=== PATIENT | female | born 1945 | race Caucasian/White ===

== ENCOUNTER 2019-09-24 13:13 | Inpatient (IN) ==
--- NOTE | 2019-09-24 14:18 | Internal Med History&Physical ---
Medical - H&P: [facility] Patient information: Note initiated : 09/24/19 at 2:10 pm Service Date, if different from initiated Date: [] Patient: Leonila Martinez a 74 y/o F admitted on for Pneumonia. Chief Complaint: [] History of present illness: Ms. Martinez is a 74 year old F Patient was sent into the ED from the dialysis unit after her expressing concerns with increased cough and left back side rib pain and shortness of breath. Patient did not not get dialysis. Patient reports has had 3 days worth of cough productive of white sputum. She has had some short associated mild shortness of breath. She has pleuritic left lateral and posterior chest pain. Made worse by coughing and deep breathing. Denies any other chest pain. In the ED she is found to have a leukocytosis and a chest x-ray which showed left lower lobe infiltrate. Case discussed with Dr. Phelps who would like the patient to be admitted, patient was sent over to [facility] for dialysis. She states she did feel feverish at home. She is on room air on arrival. BC's obtained in [facility] ED as well as Zosyn given. Review of Systems: Pertinent positives as above. Denies headache/fever/chills/nausea/vomiting/chest or abdominal pain/diarrhea. Remaining 10 point review of system reviewed negative Medical - H&P: PMH Medical history: Past medical history: Tobacco abuse End-stage renal disease Macrocytic anemia Adrenal insufficiency Crohn's Past surgical history: Total abdominal hysterectomy with bilateral salpingo-oophorectomy Partial colectomy Cholecystectomy AV fistula Ileostomy Appendectomy Family: Mother is healthy Father COPD Social history: Patient smokes half pack cigarettes per day Denies alcohol use Does not use a cane or walker Lives at home with her grandson Medical - H&P: Exam - Constitutional Exam: General: Alert, Awake, No acute Distress Eyes/N/T: EOMI, PERRL, Head/Neck: neck supple, normocephalic atraumatic CV: RRR, 3/6SM Pulm: Clear b/l, no wheezing/rhonchi/rales Abd: soft, nontender, +BS x4 Ext: no clubbing/cyanosis/edema Neuro: Alert, no focal deficits, moves all extremities, CN 2-12 grossly intact, symmetrical strength b/l upper/lower, sensations intact b/l upper/lower Skin: warm/dry Medical - H&P: A/P - Narrative A/P Narrative: A: *CAP (LLL): *ESRD: *Met acidosis: 2/2 ESRD *Hyponatremia/chloremia and hypercalemia: 2/2 ESRD *adrenal insufficiency: on fludrocortisone *Crohn's *Chr abd pain: * P: -Rocephin/Azithro -pending BC/SC -IS, prn O2 -Dr. Phelps for HD and fluid balance, electrolyte imbalance - -pt/ot -ppx: heparin full code
[2019-09-24] MEDS ORDERED: MAGNESIUM SULFATE 2 GM/50 ML BAG IV PRN (14:50)
[2019-09-24] MEDS ORDERED: SENNOSIDES 1 TABLET PO PRN (14:50)
[2019-09-24] MEDS ORDERED: POTASSIUM CHLORIDE 20 MEQ TABLET PO PRN ×2 (14:50)
[2019-09-24] MEDS ORDERED: POLYETHYLENE GLYCOL 3350 17 GM PACKET PO PRN (14:50)
[2019-09-24] MEDS ORDERED: POTASSIUM CHLORIDE 40 MEQ in DEXTROSE 5% IN WATER 500 ML IV PRN (14:50)
[2019-09-24] MEDS ORDERED: IPRATROPIUM/ALBUTEROL 3 ML AMPUL.NEB NEB PRN (14:50)
[2019-09-24 16:11] LABS: Band Neutrophils % 3 % (0-10); Lymphocytes % 8 % (15-49); Monocytes % (Manual) 4 % (1-12); Platelet Estimate INCREASED (NORMAL); RBC Morphology NORMAL (NORMAL); Segmented Neutrophils % 85 % (38-78)
[2019-09-24] MEDS: cefTRIAXone 2 GM in DEXTROSE 5% IN WATER 50 ML IV SCH (16:50)
[2019-09-24] MEDS: AZITHROMYCIN 500 MG in DEXTROSE 5% IN WATER 250 ML IV SCH (17:00)
[2019-09-24] MEDS: HYDROcodone/APAP 5/325MG TABLET PO PRN (20:14)
[2019-09-24] MEDS: DOCUSATE SODIUM 100 MG CAPSULE PO SCH (22:41)
[2019-09-24] MEDS: ONDANSETRON 4 MG/2 ML VIAL IV PRN (22:41)
[2019-09-24] MEDS: 0.9 % SODIUM CHLORIDE 10 ML SYRINGE IV SCH (22:41)
[2019-09-24] MEDS: MUPIROCIN OINT 2% 22GM NARES SCH (22:41)
[2019-09-24] MEDS: HEPARIN 5,000 UNIT/ML VIAL SQ SCH (22:50)
[2019-09-25] MEDS: HYDROcodone/APAP 5/325MG TABLET PO PRN ×4 (03:57→14:38)
[2019-09-25] MEDS: 0.9 % SODIUM CHLORIDE 10 ML SYRINGE IV SCH ×3 (05:57→20:25)
[2019-09-25 07:22] LABS: Basophils # (Auto) 0.06 K/mcL (0.00-0.30); Basophils % (Auto) 0.2 % (0.0-2.0); Eosinophils # (Auto) 0.02 K/mcL (0.00-0.70); Eosinophils % (Auto) 0.1 % (0.0-7.0); Granulocytes % (Auto) 92.4 % (38.0-78.0); Lymphocytes # (Auto) 1.49 K/mcL (1.50-4.80); Lymphocytes % (Auto) 4.8 % (15.5-49.0); Mean Cell Volume 101.6 fL (80.0-100.0); Mean Corpuscular HGB Conc 34.6 g/dL (31.0-36.0); Mean Platelet Volume 9.4 fL (7.4-10.4); Monocytes # (Auto) 0.76 K/mcL (0.10-0.90); Monocytes % (Auto) 2.5 % (1.0-12.0); Platelet Count 547 K/mcL (140-440); RBC 2.56 M/mcL (3.59-5.38); Red Cell Distribution Width 16.1 % (11.5-14.5); WBC 30.9 K/mcL (4.50-11.00)
[2019-09-25] MEDS ORDERED: LOPERAMIDE 2 MG CAPSULE PO PRN (07:26)
--- NOTE | 2019-09-25 07:27 | Internal Med Progress Note ---
Medical - PN: Subj Patient information: Note initiated : 09/25/19 at 7:23 am Service Date, if different from initiated Date: [] Patient: Leonila Martinez a 74 y/o F admitted on 09/24/19 for Pneumonia. Chief Complaint: [] Interval history: Ms. Martinez is a 74 year old F Patient was sent into the ED from the dialysis unit after her expressing concerns with increased cough and left back side rib pain and shortness of breath. Patient did not not get dialysis. Patient reports has had 3 days worth of cough productive of white sputum. She has had some short associated mild shortness of breath. She has pleuritic left lateral and posterior chest pain. Made worse by coughing and deep breathing. Denies any other chest pain. In the ED she is found to have a leukocytosis and a chest x-ray which showed left lower lobe infiltrate. Case discussed with Dr. Phelps who would like the patient to be admitted, patient was sent over to [facility] for dialysis. She states she did feel feverish at home. She is on room air on arrival. BC's obtained in [facility] ED as well as Zosyn given. 2/6 Blood pressure low during dialysis last evening. Blood pressure good today. Patient feeling better overall. No new complaints. Shortness of breath is improving. Her cough is improving. She still has that left pleuritic chest pain but it is improving. Review of Systems: denies headache/fever/chills/nausea/vomiting/abdominal pain/diarrhea. Otherwise see above. - Constitutional Vitals: Vital Signs Temp Pulse Resp BP Pulse Ox 97.8 F 92 H 22 119/87 95 09/25/19 00:00 09/25/19 04:27 09/25/19 04:27 09/25/19 04:01 09/25/19 04:27 Period Temp Pulse Resp BP Sys/Zuniga Pulse Ox Last 24 Hr 97.3 F-98.0 F 68-104 17-29 55-149/39-122 90-100 Intake and Output 09/24/19 09/25/19 09/25/19 21:59 05:59 13:59 Intake Total 100 300 Output Total 200 Balance 100 100 Weight 75.568 kg Intake & Output: Intake & Output 09/24/19 09/25/19 09/25/19 21:59 05:59 13:59 Intake Total 100 300 Output Total 200 Balance 100 100 Weight 75.568 kg Intake: Oral 100 300 Output: Stool 200 Hemodialysis UF 0 Exam: General: Alert, Awake, No acute Distress Eyes/N/T: EOMI, Head/Neck: neck supple, CV: RRR, 3/6SM Pulm: Clear b/l, no wheezing/rhonchi/rales Abd: soft, nontender, +BS x4 Ext: no clubbing/cyanosis/edema Neuro: Alert, no focal deficits, moves all extremities, Skin: warm/dry Medical - PN: Obj Da - Labs CBC & Chem 7: 09/25/19 05:20 09/25/19 05:20 Labs: Abnormal Lab Results 09/25/19 09/24/19 05:20 12:10 WBC 30.9 H* RBC 2.56 L Hgb 9.0 L Hct 26.0 L MCV 101.6 H MCH 35.2 H RDW 16.1 H Plt Count 547 H Gran % 92.4 H Lymph % (Auto) 4.8 L Gran # 28.58 H Lymph # (Auto) 1.49 L Seg Neutrophils % 85 H Lymphocytes % 8 L WBC Morphology Abnorm A Hypersegmented Polys 1+ A Meds: Medications Hydrocodone Bitart/Acetaminophen ([place] 5/325mg) 1 tab PO Q4HP PRN PRN Reason: PAIN LEVEL 3-6 Last Admin: 09/25/19 03:57 Dose: 1 tab Documented by: Albuterol/Ipratropium (Duoneb) 3 ml NEB Q4HP PRN PRN Reason: Shortness Of Breath Docusate Sodium (Colace) 100 mg PO BID [facility] Last Admin: 09/24/19 22:41 Dose: Not Given Documented by: Heparin Sodium (Porcine) (Heparin) 5,000 unit SQ Q12 [facility] Last Admin: 09/24/19 22:50 Dose: 5,000 unit Documented by: Potassium Chloride 40 meq/ (Dextrose) 520 mls @ 130 mls/hr IV UD PRN PRN Reason: Potassium < 3 Magnesium Sulfate (Magnesium Sulfate) 2 gm in 50 mls @ 50 mls/hr IV UD PRN PRN Reason: Magnesium </= 1.6 Ceftriaxone Sodium 2 gm/ (Dextrose) 50 mls @ 100 mls/hr IV DAILY [facility]; Protocol Last Admin: 09/24/19 16:50 Dose: 100 mls/hr Documented by: Azithromycin 500 mg/ Dextrose 250 mls @ 250 mls/hr IV DAILY@1000 [facility]; Protocol Stop: 09/26/19 10:59 Last Admin: 09/24/19 17:00 Dose: 120 mls/hr Documented by: Mupirocin (Bactroban Oint 2%) 1 dose NARES BID [facility] Last Admin: 09/24/19 22:41 Dose: 1 dose Documented by: Ondansetron HCl (Zofran) 4 mg IV Q4HP PRN PRN Reason: Nausea And Vomiting Last Admin: 09/24/19 22:41 Dose: 4 mg Documented by: Polyethylene Glycol (Miralax) 17 gm PO DAILYP PRN PRN Reason: Constipation Potassium Chloride (Kdur) 40 meq PO UD PRN PRN Reason: Potssium is 3-3.5 Potassium Chloride (Kdur) 40 meq PO UD PRN PRN Reason: Potassium < 3 Senna (Senokot) 2 tab PO DAILYP PRN PRN Reason: Constipation Sodium Chloride (Saline Flush) 10 ml IV Q8 [facility] Last Admin: 09/25/19 05:57 Dose: 10 ml Documented by: Medical - PN: A/P - Time Spent With Patient Total time spent is greater than 50% in coordination of care (as documented) at patient's floor/unit and/or counseling patient: - Narrative A/P Narrative: A: *CAP (LLL): -wbc 30<35, afebrile -on room air *ESRD: *Anemia, chronic: *Met acidosis: 2/2 ESRD *Hyponatremia/chloremia and hypercalemia: 2/2 ESRD. improved *in the past was on fludrocortisone *Crohn's: *Chr abd pain: * P: -Rocephin/Azithro -pending BC/SC -IS, prn O2 -Dr. Phelps for HD and fluid balance, electrolyte imbalance - -pt/ot -ppx: heparin full code Medical - PN: Qual - VTE Deep Vein Thrombosis/Pulmonary Embolism Present on Admission: No
[2019-09-25] MEDS: traMADol 50 MG TABLET PO SCH ×2 (07:49→20:25)
[2019-09-25 08:02] LABS: Bilirubin,Direct < 0.2 mg/dL (0.0-0.3)
[2019-09-25 08:04] LABS: ALT/SGPT 20 U/l (0-40); AST/SGOT 17 U/l (0-37); Albumin 2.6 gm/dL (3.2-5.2); Albumin/Globulin Ratio 0.7 (1.0-2.3); Alkaline Phosphatase 179 U/L (39-117); Bilirubin,Total 0.2 mg/dL (0.0-1.0); Blood Urea Nitrogen 17 mg/dl (8-23); Calcium 9.4 mg/dl (8.6-10.4); Carbon Dioxide 26 mmol/L (22-30); Chloride 88 mmol/L (96-108); Globulin 3.8 gm/dL (2.2-3.7); Glomerular Filtration Rate 14; Glucose 78 mg/dL (70-105); Lactate Dehydrogenase 197 U/L (94-250); Phosphorous 3.8 mg/dL (2.7-4.5); Triglycerides 147 mg/dl (<150); Uric Acid 2.8 mg/dL (2.5-8.0)
[2019-09-25] MEDS: ONDANSETRON 4 MG/2 ML VIAL IV PRN ×2 (08:36→14:38)
[2019-09-25] MEDS: cefTRIAXone 2 GM in DEXTROSE 5% IN WATER 50 ML IV SCH (08:43)
[2019-09-25] MEDS: AZITHROMYCIN 500 MG in DEXTROSE 5% IN WATER 250 ML IV SCH (08:43)
[2019-09-25] MEDS: CALCIUM ACETATE 667 MG CAPSULE PO SCH ×3 (08:45→17:02)
[2019-09-25] MEDS: MUPIROCIN OINT 2% 22GM NARES SCH ×2 (08:45→20:25)
[2019-09-25] MEDS: HEPARIN 5,000 UNIT/ML VIAL SQ SCH ×2 (08:45→20:25)
[2019-09-25] MEDS: DOCUSATE SODIUM 100 MG CAPSULE PO SCH ×2 (08:45→20:25)
[2019-09-25 09:09] LABS: Band Neutrophils % 14 % (0-10); Lymphocytes % 7 % (15-49); Metamyelocytes % 3 % (0-0); Monocytes % (Manual) 3 % (1-12); Platelet Estimate INCREASED (NORMAL); Polychromasia FEW (NONE SEEN); RBC Morphology ABNORM (NORMAL); Reactive Lymphocytes 1 % (0-2); Segmented Neutrophils % 72 % (38-78)
--- NOTE | 2019-09-25 09:19 | Nephrology Progress Note ---
Subjective Patient information: Note initiated : 09/25/19 at 9:15 am Service Date, if different from initiated Date: [] Patient: Leonila Martinez 74 y/o F admitted on 09/24/19 for Pneumonia. Chief Complaint: [] Feels better. She has not been coughing. No fever. Objective - Vital Signs Vital signs: Vital Signs Temp Pulse Pulse Resp BP BP Pulse Ox 09/25/19 08:01 98 F 16 129/57 92 09/25/19 07:01 22 135/58 96 09/25/19 06:01 22 132/54 94 09/25/19 05:01 20 116/50 95 09/25/19 04:27 92 H 22 95 09/25/19 04:01 93 H 22 119/87 96 09/25/19 03:01 94 H 24 H 114/47 93 09/25/19 02:01 94 H 29 H 102/78 95 09/25/19 02:00 95 09/25/19 01:01 95 H 25 H 125/49 96 09/25/19 00:01 96 H 25 H 126/46 99 09/25/19 00:00 97.8 F 95 H 22 98 09/24/19 23:02 96 H 21 103/44 100 09/24/19 22:18 95 H 20 89/43 95 09/24/19 22:16 94 H 21 75/46 91 09/24/19 22:13 91 H 23 H 80/44 90 09/24/19 22:09 98.0 F 91 H 80/44 09/24/19 22:01 97 H 20 92/45 93 09/24/19 21:46 25 H 88/44 09/24/19 21:31 88 26 H 80/42 91 09/24/19 21:27 104 H 88/44 09/24/19 21:16 18 88/44 09/24/19 21:11 90 84/39 09/24/19 21:06 22 84/39 09/24/19 21:02 88 18 96 09/24/19 21:01 23 H 55/40 09/24/19 20:46 88 23 H 80/48 09/24/19 20:32 95 H 22 80/43 91 09/24/19 20:19 95 H 96/45 09/24/19 20:16 86 20 96/45 92 02/05/20 20:02 68 74/49 09/24/19 20:01 23 H 74/49 09/24/19 20:00 95 09/24/19 19:50 28 H 70/44 09/24/19 19:48 82 25 H 79/39 09/24/19 19:47 21 81/42 09/24/19 19:31 18 117/91 09/24/19 19:30 80 117/91 09/24/19 19:16 23 H 106/51 09/24/19 19:15 77 106/51 09/24/19 19:01 73 23 H 106/55 09/24/19 18:47 26 H 122/61 09/24/19 18:45 97.9 F 76 122/61 09/24/19 18:43 19 127/59 09/24/19 18:01 23 H 149/122 09/24/19 17:01 77 20 122/58 96 09/24/19 16:04 73 23 H 96 09/24/19 16:01 75 21 105/49 95 09/24/19 15:01 85 19 126/73 98 09/24/19 14:50 97.3 F 78 25 H 129/59 94 09/24/19 14:31 19 119/57 09/24/19 14:27 97.3 F 25 H 129/59 09/24/19 14:26 17 09/24/19 14:15 97.3 F 78 25 H 129/59 94 Intake and Output 09/24/19 09/25/19 09/25/19 21:59 05:59 13:59 Intake Total 400 300 Output Total 200 200 Balance 400 100 -200 Intake: IV 300 Zithromax 500 mg In Dextrose 5% 250 in Water 250 ml @ 250 mls/hr IV DAILY@1000 [facility] Rx#:[id number] Rocephin 2 gm In Dextrose 5% in 50 Water 50 ml @ 100 mls/hr IV DAILY [facility] Rx#:[id number] Oral 100 300 Output: Stool 200 200 Hemodialysis UF 0 Other: Stool Color Brown Stool Consistency Liquid Weight 166 lb 9.6 oz Intake & Output: Intake & Output 09/24/19 09/25/19 09/25/19 21:59 05:59 13:59 Intake Total 400 300 Output Total 200 200 Balance 400 100 -200 Weight 166 lb 9.6 oz Intake: IV 300 Zithromax 500 mg In Dextrose 5% 250 in Water 250 ml @ 250 mls/hr IV DAILY@1000 [facility] Rx#:[id number] Rocephin 2 gm In Dextrose 5% in 50 Water 50 ml @ 100 mls/hr IV DAILY [facility] Rx#:[id number] Oral 100 300 Output: Stool 200 200 Hemodialysis UF 0 Other: Stool Color Brown Stool Consistency Liquid - General Appearance General appearance: appears started age EENT: ATNC Neck: no JVD Respiratory: no kyphosis Cardiology: no murmurs Gastrointestinal: normoactive bowel sounds Integumentary: no rash Neurologic: no focal deficit - Lab 09/25/19 05:20 09/25/19 05:20 Most recent lab results Calcium 9.4 mg/dl (8.6-10.4) 09/25/19 05:20 Phosphorus 3.8 mg/dL (2.7-4.5) 09/25/19 05:20 Magnesium 1.9 mg/dL (1.6-2.5) 09/25/19 05:20 Assessment and Plan (1) ESRD (end stage renal disease) on dialysis Status: Acute Comment: ESRD. Had dialysis yesterday. Volume is typically not an issue and she is usually volume depleted. Electrolytes look ok. Pneumonia. Agree with CT with contrast.
[2019-09-25] MEDS ORDERED: VANCOMYCIN PER PHARMACY IV SCH (09:33)
[2019-09-25] MEDS: VITAMIN D3 5,000 UNIT CAPSULE PO SCH (09:44)
--- NOTE | 2019-09-25 09:44 | XRay Report ---
CLINICAL INFORMATION: f/u left infiltrate COMPARISON: Lung base images from abdomen CT 11/11/2013 FINDINGS: Heart size, mediastinum and pulmonary vessels are normal. Moderate airspace disease posterior medial left lower lobe with small left pleural effusion appreciated. There was also an infiltrate on the remote 2013 study. The remaining lungs are clear. Mild chronic appearing compression fracture thoracic spine noted. IMPRESSION: Moderate left lower lobe infiltrate and small effusion. Suspect acute pneumonia. There was, however, airspace disease in this region on the remote CT and thus it may still merely represent fibrosis Interpreted and Authenticated by: Ramón Nicole 09/25/19
--- NOTE | 2019-09-25 09:53 | Consultation ---
DATE OF CONSULTATION: 09/24/2019 REASON FOR HOSPITALIZATION: The patient is a 74-year-old female with past medical history significant for end-stage renal disease on hemodialysis. She dialyzes Mondays, Wednesdays, Fridays. She came into the dialysis unit and was complaining of shortness of breath and back pain. For that reason, she was sent over to the emergency room where she was found to have left lower lobe pneumonia and profound leukocytosis. She has been coughing, productive for about 3 days. She also had some pleuritic type of chest pain on and off on the left side as well. Coughing and breathing made it worse. She also felt feverish at home. PAST MEDICAL HISTORY: Significant for: 1. End-stage renal disease on hemodialysis Mondays, Wednesdays, Fridays. 2. Macrocytic anemia. 3. Renal insufficiency for which she was on her fludrocortisone in the past. 4. Crohn's disease. These have been her main problems. She had significant intestinal loss in the sense that she has lost a fair amount of small bowel and she has a high ileostomy with a large output. PAST SURGICAL HISTORY: 1. History of total abdominal hysterectomy with bilateral salpingo-oophorectomy. 1. Partial colectomy. 2. Cholecystectomy. 3. AV fistula placement. 4. Ileostomy and appendectomy. FAMILY HISTORY: Apparently there is history of COPD. SOCIAL HISTORY: She smokes about half pack per day. Denies any alcohol or drug use. REVIEW OF SYSTEMS: Ten systems were reviewed and as indicated in the HPI. PHYSICAL EXAMINATION: GENERAL: Alert, oriented x3. She is in mild respiratory distress. VITAL SIGNS: Blood pressures have been ranging from 90 to 110 systolic with a diastolic in the 40s, pulse rates have been in the 90s. Temperature 98.0. Pulse oximetry 94% on room air. HEENT: NC/AT. Pupils are reactive to light. External auditory canal appears normal. Oral cavity appears dry. NECK: Supple. No jugular venous distention. No lymphadenopathy. No thyromegaly. No carotid bruits. LUNGS: Decreased air entry bilaterally. Rales heard in the left base along with rhonchi. CARDIAC: S1, S2 heard. No S3, S4. She has a ____ diastolic murmur. ABDOMEN: Soft, nontender. No edema. Positive bowel sounds. No mass, no rebound. EXTREMITIES: Did not show evidence of edema. Difficult to palpate dorsalis pedis and posterior tibials. NEUROLOGIC: Grossly intact. LABORATORY DATA: Lab data from [facility] still pending. ASSESSMENT AND PLAN: 1. End-stage renal disease. She is on dialysis. She is due for her regular dialysis treatment today. She will have 3-1/2 hours without any fluid removal. 2. Pneumonia. Management per hospitalist. 3. Anemia. Hemoglobin has been stable, but we will recheck it. 4. Hyperphosphatemia. We will check phosphorus levels. She is not very compliant with her binders. Thank you, Dr. Cazares for referring this patient for consultation. I will follow with you. SAL:michael Job ID: [id number] Doc ID: [id number] Bhavesh Cazares DO
[2019-09-25] MEDS ORDERED: VANCOMYCIN 1,000 MG in 0.9 % SODIUM CHLORIDE 250 ML IV ONE (10:00)
--- NOTE | 2019-09-25 10:54 | Discharge Summary ---
Medical - DS: Prov Patient information: Note initiated : 09/25/19 at 10:51 am Service Date, if different from initiated Date: [] Patient: Leonila Martinez 74 y/o F admitted on 09/24/19 for Pneumonia. Chief Complaint: [] Date of admission: 09/24/19 14:15 Discharge date: 09/26/19 Consults: 09/24/19 14:53 Consult to Physician [CONS] Routine Comment: Consulting Provider: Bhavesh Phelps Reason For Exam: Physician to Consult Medical - DS: Meds - Discharge Medications Prescriptions: Amoxicillin/Potassium Clav [Augmentin] 500 mg PO DAILY #5 tablet Doxycycline Monohydrate 100 mg PO BID #10 tablet Active and Home Medications: Home Medications Calcium Acetate [Calphron] 667 mg PO 09/25/19 [History Last Taken Unknown] Calcium Acetate [Phoslo] 3 tab PO TID 09/25/19 [History Confirmed 09/25/19 Last Taken Unknown] Cyanocobalamin [Vitamin B12] 1,000 mcg IM MONTHLY 09/25/19 [History Confirmed 09/25/19 Last Taken Unknown] Loperamide HCl [Loperamide] 2 mg PO Q8 PRN 09/25/19 [History Confirmed 09/25/19 Last Taken Unknown] Vitamin D3 5,000 unit PO DAILY 09/25/19 [History Confirmed 09/25/19 Last Taken Unknown] traMADol HCL [Ultram] 50 mg PO BID 09/25/19 [History Confirmed 09/25/19 Last Taken Unknown] Home Medications Calcium Acetate [Phoslo] 3 tab PO TID 09/25/19 [History Confirmed 09/25/19 Last Taken Unknown] Loperamide HCl [Loperamide] 2 mg PO Q8 PRN 09/25/19 [History Confirmed 09/25/19 Last Taken Unknown] Vitamin D3 5,000 unit PO DAILY 09/25/19 [History Confirmed 09/25/19 Last Taken Unknown] traMADol HCL [Ultram] 50 mg PO BID 09/25/19 [History Confirmed 09/25/19 Last Taken Unknown] Amoxicillin/Potassium Clav [Augmentin] 500 mg PO DAILY #5 tablet 09/26/19 [Rx Last Taken Unknown] Doxycycline Monohydrate 100 mg PO BID #10 tablet 09/26/19 [Rx Last Taken Unknown] Medical - DS: Hosp Hospital Course: Ms. Martinez is a 74 year old F Patient was sent into the ED from the dialysis unit after her expressing concerns with increased cough and left back side rib pain and shortness of breath. Patient did not not get dialysis. Patient reports has had 3 days worth of cough productive of white sputum. She has had some short associated mild shortness of breath. She has pleuritic left lateral and posterior chest pain. Made worse by coughing and deep breathing. Denies any other chest pain. In the ED she is found to have a leukocytosis and a chest x-ray which showed left lower lobe infiltrate. Case discussed with Dr. Phelps who would like the patient to be admitted, patient was sent over to [facility] for dialysis. She states she did feel feverish at home. She is on room air on arrival. BC's obtained in [facility] ED as well as Zosyn given. / Blood pressure low during dialysis last evening. Blood pressure good today. Patient feeling better overall. No new complaints. Shortness of breath is improving. Her cough is improving. She still has that left pleuritic chest p ain but it is improving. 09/26 No overnight events. White blood cell count improving. Bandemia resolved. Blood cultures negative. A: *CAP (LLL): *ESRD: *Anemia, chronic: *Met acidosis: 2/2 ESRD *Hyponatremia/chloremia and hypercalemia: 2/2 ESRD. improved *in the past was on fludrocortisone *Crohn's: *Chr abd pain: * Discharge diagnosis: Pneumonia Secondary discharge diagnosis: End-stage renal disease chronic anemia metabolic acidosis electrolyte imbalance Crohn's chronic abdominal pain - Time Spent with Patient Total time spent providing and/or coordinating discharge services: Greater than 30 minutes Medical - DS: Exam - Constitutional Vitals: Vital Signs Temp Pulse Pulse Resp BP BP Pulse Ox 09/25/19 08:01 98 F 16 129/57 92 09/25/19 07:01 22 135/58 96 09/25/19 06:01 22 132/54 94 09/25/19 05:01 20 116/50 95 09/25/19 04:27 92 H 22 95 09/25/19 04:01 93 H 22 119/87 96 09/25/19 03:01 94 H 24 H 114/47 93 09/25/19 02:01 94 H 29 H 102/78 95 02/06/20 02:00 95 09/25/19 01:01 95 H 25 H 125/49 96 20 00:01 96 H 25 H 126/46 99 09/25/19 00:00 97.8 F 95 H 22 98 0520 23:02 96 H 21 103/44 100 09/24/19 22:18 95 H 20 89/43 95 05/20 22:16 94 H 21 75/46 91 0520 22:13 91 H 23 H 80/44 90 0520 22:09 98.0 F 91 H 80/44 05 22:01 97 H 20 92/45 93 05 21:46 25 H 88/44 0520 21:31 88 26 H 80/42 91 0520 21:27 104 H 88/44 09/24/19 21:16 18 88/44 0520 21:11 90 84/39 09/24/19 21:06 22 84/39 09/24/19 21:02 88 18 96 09/24/19 21:01 23 H 55/40 0520 20:46 88 23 H 80/48 0520 20:32 95 H 22 80/43 91 0520 20:19 95 H 96/45 20 20:16 86 20 96/45 92 0520 20:02 68 74/49 0520 20:01 23 H 74/49 0520 20:00 95 0520 19:50 28 H 70/44 0520 19:48 82 25 H 79/39 05/20 19:47 21 81/42 0520 19:31 18 117/91 0205/20 19:30 80 117/91 0205/20 19:16 23 H 106/51 /05/20 19:15 77 106/51 0205/20 19:01 73 23 H 106/55 05/20 18:47 26 H 122/61 02/05/20 18:45 97.9 F 76 122/61 02/05/20 18:43 19 127/59 0205/20 18:01 23 H 149/122 02/05/20 17:01 77 20 122/58 96 09/24/19 16:04 73 23 H 96 09/24/19 16:01 75 21 105/49 95 09/24/19 15:01 85 19 126/73 98 09/24/19 14:50 97.3 F 78 25 H 129/59 94 09/24/19 14:31 19 119/57 09/24/19 14:27 97.3 F 25 H 129/59 09/24/19 14:26 17 09/24/19 14:15 97.3 F 78 25 H 129/59 94 Intake and Output 09/24/19 09/25/19 09/25/19 21:59 05:59 13:59 Intake Total 400 300 50 Output Total 200 200 Balance 400 100 -150 Intake: IV 300 50 Zithromax 500 mg In Dextrose 5% 250 in Water 250 ml @ 250 mls/hr IV DAILY@1000 DENAE Rx#:[id number] Rocephin 2 gm In Dextrose 5% in 50 50 Water 50 ml @ 100 mls/hr IV DAILY DENAE Rx#:[id number] Oral 100 300 Output: Stool 200 200 Hemodialysis UF 0 Other: Stool Color Brown Stool Consistency Liquid Weight 75.568 kg Medical - DS: Data Labs on day of discharge: Labs from last 24 hours 09/25/19 09/25/19 09/25/19 05:20 05:20 05:20 WBC RBC Hgb Hct MCV MCH MCHC RDW Plt Count MPV Gran % Lymph % (Auto) [place] % (Auto) Eos % (Auto) Baso % (Auto) Gran # Lymph # (Auto) [place] # (Auto) Eos # (Auto) Baso # (Auto) Total Counted 100 Seg Neutrophils % 72 Band Neutrophils % 14 H Lymphocytes % 7 L Monocytes % (Manual) 3 Metamyelocytes % 3 H Differential Comment WBC Morphology Hypersegmented Polys Reactive Lymphocytes 1 Platelet Estimate Increased RBC Morphology Abnorm A Polychromasia Few A Sodium 132 L Potassium 4.0 Chloride 88 L Carbon Dioxide 26 Anion Gap 18.0 H BUN 17 Creatinine 3.2 H GFR Calculation 14 Glucose 78 Uric Acid 2.8 Calcium 9.4 Phosphorus 3.8 Magnesium 1.9 Total Bilirubin 0.2 Direct Bilirubin < 0.2 GGT 46 H AST 17 ALT 20 Alkaline Phosphatase 179 H Lactate Dehydrogenase 197 Total Protein 6.4 Albumin 2.6 L Globulin 3.8 H Albumin/Globulin Ratio 0.7 L Triglycerides 147 Procalcitonin > 200.00 09/25/19 09/24/19 09/24/19 05:20 16:30 12:10 WBC 30.9 H* RBC 2.56 L Hgb 9.0 L Hct 26.0 L MCV 101.6 H MCH 35.2 H MCHC 34.6 RDW 16.1 H Plt Count 547 H MPV 9.4 Gran % 92.4 H Lymph % (Auto) 4.8 L [place] % (Auto) 2.5 Eos % (Auto) 0.1 Baso % (Auto) 0.2 Gran # 28.58 H Lymph # (Auto) 1.49 L [place] # (Auto) 0.76 Eos # (Auto) 0.02 Baso # (Auto) 0.06 Total Counted Seg Neutrophils % Band Neutrophils % Lymphocytes % Monocytes % (Manual) Metamyelocytes % Differential Comment WBC Morphology Hypersegmented Polys Reactive Lymphocytes Platelet Estimate RBC Morphology Polychromasia Sodium Potassium Chloride Carbon Dioxide Anion Gap BUN Creatinine GFR Calculation Glucose Uric Acid Calcium Phosphorus Magnesium Total Bilirubin Direct Bilirubin GGT AST ALT Alkaline Phosphatase Lactate Dehydrogenase Total Protein Albumin Globulin Albumin/Globulin Ratio Triglycerides Procalcitonin > 200.00 TNP 09/24/19 12:10 WBC RBC Hgb Hct MCV MCH MCHC RDW Plt Count MPV Gran % Lymph % (Auto) [place] % (Auto) Eos % (Auto) Baso % (Auto) Gran # Lymph # (Auto) [place] # (Auto) Eos # (Auto) Baso # (Auto) Total Counted 100 Seg Neutrophils % 85 H Band Neutrophils % 3 Lymphocytes % 8 L Monocytes % (Manual) 4 Metamyelocytes % Differential Comment WBC Morphology Abnorm A Hypersegmented Polys 1+ A Reactive Lymphocytes Platelet Estimate Increased RBC Morphology Normal Polychromasia Sodium Potassium Chloride Carbon Dioxide Anion Gap BUN Creatinine GFR Calculation Glucose Uric Acid Calcium Phosphorus Magnesium Total Bilirubin Direct Bilirubin GGT AST ALT Alkaline Phosphatase Lactate Dehydrogenase Total Protein Albumin Globulin Albumin/Globulin Ratio Triglycerides Procalcitonin Medical - DS: A/P - Patient/Caregiver Discharge Instructions Activity: increase activity as tolerated Diet: Renal Additional Instructions: f/u with PCP in 3 to 7 days. - Follow up Plan Follow up with: Bhavesh Phelps MD [Physician] - (Follow up with Dr. Phelps in clinic as previous) Disposition: Home, Self-Care Care Plan Goals: This discharge packet is provided to you to help keep you informed about your care. We want to ensure you get everything you need when you go home. You will also be receiving a call from us in a few days to follow up with you and see how you are doing since your discharge. This gives us a chance to listen to any concerns you maybe experiencing since you were discharged or any additional needs you may have, as well as providing us feedback on your care experience. We strive to always provide excellent care and thank you for your feedback and for choosing [facility]. Prognosis: Fair Rehab Potential: Fair Overall status at discharge: patient is progressing back to baseline Medical - DS: Qual - VTE Deep Vein Thrombosis/Pulmonary Embolism Present on Admission: No
--- NOTE | 2019-09-25 12:42 | Cat Scan Report ---
CLINICAL INFORMATION: Pneumonia COMPARISON: No prior chest CT. Abdomen and pelvic CT 11/11/2013. TECHNIQUE: 80 cc of Isovue-370 were injected intravenously, and 25 seconds later, 0.625 mm helical slices were obtained from the lung apices through the bases. Following reconstruction, 2.5 mm sagittal, coronal and axial reformations were processed and reviewed at lung, mediastinal and bone windows. 7 mm axial MIPS were also obtained to optimize pulmonary nodule detection. The exam was performed using radiation dose optimization techniques including, but not limited to, automated exposure control, adjustment of the mA and/or kV according to patient size and use of iterative reconstruction technique. FINDINGS: Mediastinal windows show the pulmonary arteries are normal diameter and well opacified without evidence of embolus. Thoracic aorta is also normal diameter with scattered fibrofatty calcific plaque in the descending segment. There is no adenopathy in the mediastinal hilar or axillary regions. The heart is normal in size. Extremely heavy calcific atherosclerotic plaque in the left main coronary artery origin is appreciated. There may be hemodynamically significant stenosis in this clinical region. Only minimal scattered calcific plaque seen throughout the remaining coronary arteries. The esophagus is grossly normal. Thyroid is unremarkable. Pulmonary parenchymal windows show densely consolidated infiltrate or atelectasis throughout the left lower lobe with sparing of the superior segment. The remaining lungs are clear. Small left pleural effusion noted. Mild chronic wedging all thoracic vertebral bodies appreciated. Images through the superior abdomen show multiple hepatic cysts - as previously seen. Only the superior aspect of the left kidney is included but it appears to be atrophic. IMPRESSION: Large densely consolidated region of atelectasis or infiltrate in the left lower lobe. Small left pleural effusion Extremely heavy calcific plaque in the left main coronary origin which may represent a hemodynamically significant stenosis in this critical coronary artery segment. Suggest cardiology referral for stress testing to evaluate for coronary ischemia. Left kidney is incompletely imaged but appears be atrophic. Suggest renal ultrasound to evaluate both kidneys. Both kidneys on the [address] were normal Interpreted and Authenticated by: Ramón Nicole 09/25/19
[2019-09-26] MEDS: 0.9 % SODIUM CHLORIDE 10 ML SYRINGE IV SCH (05:41)
[2019-09-26 06:52] LABS: Bilirubin,Direct < 0.2 mg/dL (0.0-0.3)
[2019-09-26 07:13] LABS: Hematocrit 25.9 % (34.1-44.9); Hemoglobin 8.6 g/dL (11.2-15.7); Mean Cell Volume 101.6 fL (80.0-100.0); Mean Corpuscular HGB Conc 33.2 g/dL (31.0-36.0); Mean Platelet Volume 9.4 fL (7.4-10.4); Platelet Count 500 K/mcL (140-440); RBC 2.55 M/mcL (3.59-5.38); Red Cell Distribution Width 16.5 % (11.5-14.5); WBC 18.2 K/mcL (4.50-11.00)
[2019-09-26 07:18] LABS: ALT/SGPT 15 U/l (0-40); AST/SGOT 16 U/l (0-37); Albumin 2.3 gm/dL (3.2-5.2); Albumin/Globulin Ratio 0.6 (1.0-2.3); Alkaline Phosphatase 160 U/L (39-117); Bilirubin,Total 0.2 mg/dL (0.0-1.0); Blood Urea Nitrogen 34 mg/dl (8-23); Calcium 9.1 mg/dl (8.6-10.4); Carbon Dioxide 24 mmol/L (22-30); Chloride 81 mmol/L (96-108); Globulin 4.1 gm/dL (2.2-3.7); Glomerular Filtration Rate 7; Glucose 63 mg/dL (70-105); Lactate Dehydrogenase 189 U/L (94-250); Phosphorous 5.9 mg/dL (2.7-4.5); Triglycerides 135 mg/dl (<150); Uric Acid 7.1 mg/dL (2.5-8.0)
[2019-09-26 08:04] LABS: Anisocytosis 2+ (NONE SEEN); Band Neutrophils % 2 % (0-10); Hypochromasia 1+ (NONE SEEN); Lymphocytes % 7 % (15-49); Metamyelocytes % 1 % (0-0); Monocytes % (Manual) 2 % (1-12); Platelet Estimate INCREASED (NORMAL); RBC Morphology ABNORM (NORMAL); Segmented Neutrophils % 88 % (38-78)
[2019-09-26] MEDS: cefTRIAXone 2 GM in DEXTROSE 5% IN WATER 50 ML IV SCH (08:06)
[2019-09-26] MEDS: HEPARIN 5,000 UNIT/ML VIAL SQ SCH (08:07)
[2019-09-26] MEDS: traMADol 50 MG TABLET PO SCH (08:07)
[2019-09-26] MEDS: AZITHROMYCIN 500 MG in DEXTROSE 5% IN WATER 250 ML IV SCH (08:07)
[2019-09-26] MEDS: CALCIUM ACETATE 667 MG CAPSULE PO SCH (08:07)
[2019-09-26] MEDS: DOCUSATE SODIUM 100 MG CAPSULE PO SCH (08:07)
[2019-09-26] MEDS: MUPIROCIN OINT 2% 22GM NARES SCH (08:07)
[2019-09-26] MEDS: HYDROcodone/APAP 5/325MG TABLET PO PRN (08:08)
[2019-09-26] MEDS: VITAMIN D3 5,000 UNIT CAPSULE PO SCH (08:11)
== END 2019-09-26 09:00 | disposition home or self-care (01) | DRG 193 ==
LOC: ICU 14:15
PROVIDERS: ADMIT Internal Medicine; ATTEND Internal Medicine

== ENCOUNTER 2019-09-30 17:23 | Inpatient (IN) ==
--- NOTE | 2019-09-30 17:42 | Emergency Department Note ---
General Adult HPI - General Chief complaint: Cold/Flu Symptoms Stated complaint: possible pneumonia Time Seen by Provider: 09/30/19 17:32 Source: patient Mode of arrival: ambulatory Limitations: no limitations - History of Present Illness HPI Narrative: This patient apparently was in [facility] last week with pneumonia. She is a dialysis patient of Dr. Mesa. She currently is taking Augmentin. She has become sicker again and was too sick to have her dialysis yesterday. She continues to have cough and general weakness and in general feels poorly. - Related Data Home Medications Medication Instructions Recorded Confirmed Calcium Acetate [Phoslo] 3 tab PO TID 09/25/19 09/25/19 Loperamide HCl [Loperamide] 2 mg PO Q8 PRN 09/25/19 09/25/19 Vitamin D3 5,000 unit PO DAILY 09/25/19 09/25/19 traMADol HCL [Ultram] 50 mg PO BID 09/25/19 09/25/19 Previous Rx's Medication Instructions Recorded Amoxicillin/Potassium Clav 500 mg PO DAILY #5 tab 09/26/19 [Augmentin] Doxycycline Monohydrate 100 mg PO BID #10 tab 09/26/19 Allergies Allergy/AdvReac Type Severity Reaction Status Date / Time Sulfa (Sulfonamide Allergy Mild Rash Verified 09/25/19 06:54 Antibiotics) Review of Systems All systems ED: reviewed and negative except as stated. Past Medical History - Past Medical History Medical history: Reports: renal disease - Social History smoking status: Current every day smoker Physical Exam Limitations: no limitations General appearance: alert Head: atraumatic Eye: Present: normal appearance ENT: Present: normal exam Neck: Present: normal inspection Chest: Present: normal inspection Respiratory: Present: normal lung sounds bilaterally Cardiovascular: Present: regular rate, normal rhythm, normal heart sounds Abdominal: Present: soft. Absent: distention, tenderness Neurological: Present: alert Psychiatric: Present: normal affect Skin: Present: warm, dry Course Vital Signs Temperature 97.5 F 09/30/19 17:24 Pulse Rate 57 L 09/30/19 17:24 Respiratory Rate 18 09/30/19 17:24 Blood Pressure 119/50 09/30/19 17:24 Pulse Oximetry (%) 96 09/30/19 17:24 Temperature 97.5 F 09/30/19 17:24 Pulse Rate 81 09/30/19 19:31 Respiratory Rate 18 09/30/19 17:24 Blood Pressure 112/48 09/30/19 19:46 Pulse Oximetry (%) 100 09/30/19 19:31 Medical Decision Making - MDM Narrative Medical decision making narrative: Chest x-ray looks actually about the same as previously with a right upper lobe infiltrate. However her white count is gone back up to 32,000 and she is acidotic her creatinine is 11. I spoke with Dr. Lenin Cooley and she will be admitted to the ICU. - Lab Data Lab results reviewed: Yes I reviewed the patient's lab results. Result diagrams: 09/30/19 18:00 09/30/19 18:00 Lab Results 09/30/19 09/30/19 09/30/19 Range/Units 18:00 18:00 18:00 WBC 32.3 H* (4.50-11.00) K/mcL RBC 3.19 L (3.59-5.38) M/mcL Hgb 11.2 (11.2-15.7) g/dL Hct 31.4 L (34.1-44.9) % MCV 98.4 (80.0-100.0) fL MCH 35.1 H (26.0-34.0) pg MCHC 35.7 (31.0-36.0) g/dL RDW 17.7 H (11.5-14.5) % Plt Count 1028 H* (140-440) K/mcL MPV 9.1 (7.4-10.4) fL Gran % 89.1 H (38.0-78.0) % Lymph % (Auto) 7.5 L (15.5-49.0) % Ellis % (Auto) 3.0 (1.0-12.0) % Eos % (Auto) 0.1 (0.0-7.0) % Baso % (Auto) 0.3 (0.0-2.0) % Gran # 28.77 H (1.80-8.00) K/mcL Lymph # (Auto) 2.42 (1.50-4.80) K/mcL Ellis # (Auto) 0.98 H (0.10-0.90) K/mcL Eos # (Auto) 0.03 (0.00-0.70) K/mcL Baso # (Auto) 0.09 (0.00-0.30) K/mcL VBG Lactic Acid 1.7 (0.5-2.0) mmol/L Sodium 131 L (133-145) mmol/L Potassium 4.5 (3.3-5.1) mmol/L Chloride 63 L (96-108) mmol/L Carbon Dioxide 10 L* (22-30) mmol/L Anion Gap TNP BUN 76 H (8-23) mg/dl Creatinine 11.0 H* (0.6-1.1) mg/dl GFR Calculation 3 Glucose 97 (70-105) mg/dL Calcium 10.1 (8.6-10.4) mg/dl Total Bilirubin 0.4 (0.0-1.0) mg/dL AST 118 H (0-37) U/l ALT 95 H (0-40) U/l Alkaline Phosphatase 321 H (39-117) U/L Troponin T (0-0.03) ng/ml NT-Pro-B Natriuret Pep 04850.0 H (0-125) pg/ml Total Protein 7.4 (5.9-8.4) gm/dL Albumin 3.1 L (3.2-5.2) gm/dL Globulin 4.3 H (2.2-3.7) gm/dL Albumin/Globulin Ratio 0.7 L (1.0-2.3) 09/30/19 Range/Units 18:00 WBC (4.50-11.00) K/mcL RBC (3.59-5.38) M/mcL Hgb (11.2-15.7) g/dL Hct (34.1-44.9) % MCV (80.0-100.0) fL MCH (26.0-34.0) pg MCHC (31.0-36.0) g/dL RDW (11.5-14.5) % Plt Count (140-440) K/mcL MPV (7.4-10.4) fL Gran % (38.0-78.0) % Lymph % (Auto) (15.5-49.0) % Ellis % (Auto) (1.0-12.0) % Eos % (Auto) (0.0-7.0) % Baso % (Auto) (0.0-2.0) % Gran # (1.80-8.00) K/mcL Lymph # (Auto) (1.50-4.80) K/mcL Ellis # (Auto) (0.10-0.90) K/mcL Eos # (Auto) (0.00-0.70) K/mcL Baso # (Auto) (0.00-0.30) K/mcL VBG Lactic Acid (0.5-2.0) mmol/L Sodium (133-145) mmol/L Potassium (3.3-5.1) mmol/L Chloride (96-108) mmol/L Carbon Dioxide (22-30) mmol/L Anion Gap BUN (8-23) mg/dl Creatinine (0.6-1.1) mg/dl GFR Calculation Glucose (70-105) mg/dL Calcium (8.6-10.4) mg/dl Total Bilirubin (0.0-1.0) mg/dL AST (0-37) U/l ALT (0-40) U/l Alkaline Phosphatase (39-117) U/L Troponin T 0.04 H* (0-0.03) ng/ml NT-Pro-B Natriuret Pep (0-125) pg/ml Total Protein (5.9-8.4) gm/dL Albumin (3.2-5.2) gm/dL Globulin (2.2-3.7) gm/dL Albumin/Globulin Ratio (1.0-2.3) - Radiology Data Radiology results reviewed: Yes I reviewed the patient's radiology results. Disposition Pt seen by MANAGER MEDICAL DEVICE/PA only: No Clinical Impression: ESRD (end stage renal disease) on dialysis, Pneumonia Disposition: Xfer As Inpt ([facility]) Condition: Fair Time of Disposition: 19:59
--- NOTE | 2019-09-30 18:03 | XRay Report ---
CLINICAL INFORMATION:Follow-up left lower lobe consolidation TECHNIQUE: PA and lateral upright chest x-ray COMPARISON: Previous CT scan dated 09/25/2019. Previous chest x-ray dated 09/25/2019 FINDINGS:Previous examinations demonstrated dense consolidation in the left lower lobe. There has been some interval improvement. There is persistent density which is best visualized on lateral view. Continued follow-up recommended. No new pulmonary parenchymal infiltrate. Right lung is negative. Heart size and vascularity are within normal limits. No pulmonary edema or pulmonary congestion. Savita and mediastinum are negative. There may be a small left pleural effusion. There is elevation of the right hemidiaphragm. IMPRESSION: 1. Improved but not resolved left lower lobe pulmonary parenchymal density. Continued follow-up recommended 2. Blunting of the left posterior costophrenic sulcus consistent with small effusion 3. Elevated right hemidiaphragm, unchanged Interpreted and Authenticated by: Ramón Joya 09/30/19
[2019-09-30 19:12] LABS: Basophils # (Auto) 0.09 K/mcL (0.00-0.30); Basophils % (Auto) 0.3 % (0.0-2.0); Eosinophils # (Auto) 0.03 K/mcL (0.00-0.70); Eosinophils % (Auto) 0.1 % (0.0-7.0); Granulocytes % (Auto) 89.1 % (38.0-78.0); Hematocrit 31.4 % (34.1-44.9); Hemoglobin 11.2 g/dL (11.2-15.7); Lymphocytes # (Auto) 2.42 K/mcL (1.50-4.80); Lymphocytes % (Auto) 7.5 % (15.5-49.0); Mean Cell Volume 98.4 fL (80.0-100.0); Mean Corpuscular HGB Conc 35.7 g/dL (31.0-36.0); Mean Platelet Volume 9.1 fL (7.4-10.4); Monocytes # (Auto) 0.98 K/mcL (0.10-0.90); Platelet Count 1028 K/mcL (140-440); RBC 3.19 M/mcL (3.59-5.38); Red Cell Distribution Width 17.7 % (11.5-14.5); WBC 32.3 K/mcL (4.50-11.00)
[2019-09-30 19:34] LABS: ALT/SGPT 95 U/l (0-40); AST/SGOT 118 U/l (0-37); Albumin 3.1 gm/dL (3.2-5.2); Albumin/Globulin Ratio 0.7 (1.0-2.3); Alkaline Phosphatase 321 U/L (39-117); Bilirubin,Total 0.4 mg/dL (0.0-1.0); Blood Urea Nitrogen 76 mg/dl (8-23); Calcium 10.1 mg/dl (8.6-10.4); Carbon Dioxide 10 mmol/L (22-30); Chloride 63 mmol/L (96-108); Globulin 4.3 gm/dL (2.2-3.7); Glomerular Filtration Rate 3; Glucose 97 mg/dL (70-105)
[2019-09-30] MEDS ORDERED: SODIUM BICARBONATE VIAL 150 MEQ in DEXTROSE 5% IN WATER 850 ML IV ONE (20:15)
[2019-09-30] MEDS ORDERED: 0.9 % SODIUM CHLORIDE 1,000 ML IV ONE ×2 (20:17→22:02)
[2019-09-30] MEDS ORDERED: SODIUM BICARBONATE 50 MEQ/50 ML VIAL ONE (20:19)
[2019-09-30] MEDS ORDERED: HYDROmorphone 2 MG/ML VIAL IV PRN (20:21)
--- NOTE | 2019-09-30 20:49 | Internal Med History&Physical ---
Medical - H&P: [facility] Patient information: Note initiated : 09/30/19 at 8:48 pm Service Date, if different from initiated Date: [] Patient: Leonila Martinez a 74 y/o F admitted on for possible pneumonia. Chief Complaint: [] Chief complaint: Weakness and confusion History of present illness: Ms. Martinez is a 74 year old F with known history of ESRD on hemodialysis who follows up with Dr. Phelps. Patient was recently admitted at [facility] with pneumonia and was hospitalized for 48 hours and subsequently discharged with improving white count and post hemodialysis. However over the last 3 to 4 days patient has gotten progressively weaker confused and has missed her hemodialysis due to profound weakness. She is gotten progressively short of breath and with increasing concerns family brought her to the ER. Initial work-up was consistent with basilar infiltrate/white count over 32,000. Bicarbonate 10, Platelets 1028, procalcitonin greater than 200. Nephrology was consulted for hemodialysis. Hospital service consulted after cultures were drawn patient was started on antibiotics. At the time evaluation patient is fatigued lethargic confused oriented only to self but unable to answer to most of the questions or provide a detailed history. Most of the history was obtained from review of medical records and from ER physician. Review of systems patient denies fever, chills, headache, photophobia, diarrhea Medical - H&P: PMH Medical history: Past medical history: Tobacco abuse End-stage renal disease Macrocytic anemia Adrenal insufficiency Crohn's Past surgical history: Total abdominal hysterectomy with bilateral salpingo-oophorectomy Partial colectomy Cholecystectomy AV fistula Ileostomy Appendectomy Family: Mother is healthy Father COPD Social history: Patient smokes half pack cigarettes per day Denies alcohol use Does not use a cane or walker Lives at home with her grandson Medical - H&P: Meds Home Medications Medication Instructions Recorded Confirmed Type Calcium Acetate [Phoslo] 3 tab PO TID 09/25/19 10/01/19 History Loperamide HCl [Loperamide] 2 mg PO Q8 PRN 09/25/19 10/01/19 History Vitamin D3 5,000 unit PO DAILY 09/25/19 10/01/19 History traMADol HCL [Ultram] 50 mg PO BID 09/25/19 10/01/19 History Amoxicillin/Potassium Clav 500 mg PO DAILY #5 tab 09/26/19 10/01/19 Rx [Augmentin] Doxycycline Monohydrate 100 mg PO BID #10 tab 09/26/19 10/01/19 Rx Allergies Allergy/AdvReac Type Severity Reaction Status Date / Time Sulfa (Sulfonamide Allergy Mild Rash Verified 10/01/19 01:25 Antibiotics) Medical - H&P: Exam - Constitutional Vitals: Temp Pulse Resp BP Pulse Ox 97.5 F 81 18 112/48 100 09/30/19 17:24 09/30/19 19:31 09/30/19 17:24 09/30/19 19:46 09/30/19 19:31 General appearance: moderate distress Exam: Anxious and confused Oral cavity dry with parched lips Head normocephalic No ear nose discharge Neck no lymphadenopathy S1-S2 regular rhythm ESM grade 1 Diminished breath sounds bilateral bases late entry crackles Abdomen soft nontender nondistended Lower extremity no sinus clubbing or joint swelling Skin no suspicious lesion Psych anxious but cooperative Neuro confused, moving all extremities Medical - H&P: Reslt - Labs CBC & Chem 7: 09/30/19 18:00 09/30/19 18:00 Labs: Short CBC 09/30/19 Range/Units 18:00 WBC 32.3 H* (4.50-11.00) K/mcL Hgb 11.2 (11.2-15.7) g/dL Hct 31.4 L (34.1-44.9) % Plt Count 1028 H* (140-440) K/mcL BMP 09/30/19 18:00 Sodium 131 L Potassium 4.5 Chloride 63 L Carbon Dioxide 10 L* BUN 76 H Creatinine 11.0 H* Glucose 97 Calcium 10.1 Cardiac Enzymes 09/30/19 Range/Units 18:00 Troponin T 0.04 H* (0-0.03) ng/ml Liver Function 09/30/19 Range/Units 18:00 Total Bilirubin 0.4 (0.0-1.0) mg/dL AST 118 H (0-37) U/l ALT 95 H (0-40) U/l Alkaline Phosphatase 321 H (39-117) U/L Albumin 3.1 L (3.2-5.2) gm/dL Medical - H&P: A/P (1) Severe sepsis with acute organ dysfunction Current visit: Yes Status: Acute * Severe sepsis with acute organ dysfunction secondary to bilateral pneumonia. On antibiotic coverage including cefepime vancomycin. White count 32K High risk for further decompensation and multiple organ failure. Continue management per guidelines. * Acute mental status change secondary to severe sepsis * Bilateral pneumonia continue antibiotic coverage * ESRD on HD management nephrology * Chronic anemia * History of Crohn's disease * Thrombocytosis likely reactive secondary to persistent infection. * Full code * Prophylaxis heparin Plan * ICU admit * Critically ill with [place] score 16 * ESRD management per nephrology * Sepsis management per guidelines * Broad antibiotic coverage * Pancultures
[2019-09-30 21:28] LABS: ABG Methemoglobin 0.1 % (0.4-1.5); Total Hemoglobin 10.5 gm/dL (12.0-15.0); VBG Base Excess -9.8 (-2.0-2.0); VBG HCO3 12.2 mmol/L (24.0-28.0); VBG Oxygen Saturation 86.3 % (40.0-70.0); VBG PH 7.45 U (7.32-7.42); VBG PO2 56 mmHg (25-40); VBG Total CO2 12.8 mmol/L (25.0-29.0)
[2019-09-30] MEDS ORDERED: CEFEPIME 2 GM VIAL IV SCH (22:00)
[2019-09-30] MEDS ORDERED: CEFEPIME 2 GM in DEXTROSE 5% IN WATER 50 ML IV SCH (22:02)
[2019-09-30] MEDS ORDERED: BISACODYL 10 MG SUPP.RECT PR PRN (22:02)
[2019-09-30] MEDS ORDERED: POLYETHYLENE GLYCOL 3350 17 GM PACKET PO PRN (22:02)
[2019-09-30] MEDS ORDERED: ACETAMINOPHEN 650 MG/65 ML BOTTLE IV PRN (22:02)
[2019-09-30] MEDS ORDERED: VANCOMYCIN PER PHARMACY IV SCH (22:02)
[2019-09-30] MEDS: DOCUSATE SODIUM 100 MG CAPSULE PO SCH (22:25)
[2019-09-30] MEDS: SENNOSIDES/DOCUSATE SODIUM 1 TAB TABLET PO SCH (22:26)
[2019-09-30] MEDS: 0.9 % SODIUM CHLORIDE 10 ML SYRINGE IV SCH (22:31)
[2019-09-30] MEDS: HEPARIN 5,000 UNIT/ML VIAL SQ SCH (22:31)
[2019-09-30] MEDS ORDERED: VANCOMYCIN 1,000 MG in 0.9 % SODIUM CHLORIDE 250 ML IV ONE (23:00)
[2019-10-01] MEDS: ACETAMINOPHEN 325 MG TABLET PO PRN ×4 (00:21→15:21)
[2019-10-01] MEDS: ONDANSETRON 4 MG/2 ML VIAL IV PRN ×2 (00:45→07:37)
[2019-10-01] MEDS ORDERED: NOREPINEPHRINE BITARTRATE 4 MG/4 ML VIAL IV ONE (00:54)
[2019-10-01] MEDS: NOREPINEPHRINE BITARTRATE 16 MG in 0.9 % SODIUM CHLORIDE 234 ML IV SCH (01:14)
[2019-10-01] MEDS: 0.9 % SODIUM CHLORIDE 250 ML IV SCH ×3 (01:16→22:00)
[2019-10-01] MEDS: 0.9 % SODIUM CHLORIDE 10 ML SYRINGE IV SCH ×3 (05:16→21:59)
[2019-10-01] MEDS: DOCUSATE SODIUM 100 MG CAPSULE PO SCH ×2 (07:56→21:58)
[2019-10-01] MEDS: CEFEPIME 1 GM VIAL IV SCH (08:14)
[2019-10-01] MEDS: HEPARIN 5,000 UNIT/ML VIAL SQ SCH ×2 (08:14→21:58)
[2019-10-01] MEDS: MULTIVIT,THER IRON,CA,FA & MIN 1 TABLET PO SCH (08:15)
--- NOTE | 2019-10-01 09:36 | Nephrology Progress Note ---
Subjective Patient information: Note initiated : 10/01/19 at 9:33 am Service Date, if different from initiated Date: [] Patient: Leonila Martinez 74 y/o F admitted on 09/30/19 for possible pneumonia. Chief Complaint: [] Slightly confused. No other complaints. Objective - Vital Signs Vital signs: Vital Signs Temp Pulse Resp BP Pulse Ox 10/01/19 08:46 102 H 28 H 92/40 94 10/01/19 08:39 105 H 20 99/44 93 10/01/19 08:35 110 H 25 H 76/41 93 10/01/19 08:31 105 H 15 89/48 95 10/01/19 08:16 100 H 20 98/41 95 10/01/19 08:01 104 H 22 103/44 96 10/01/19 07:46 104 H 24 H 93/39 95 10/01/19 07:31 105 H 20 99/40 94 10/01/19 07:16 104 H 26 H 113/35 100 10/01/19 07:01 107 H 22 107/47 94 10/01/19 06:46 115 H 22 125/47 100 10/01/19 06:31 110 H 26 H 107/45 96 10/01/19 06:16 108 H 24 H 103/43 98 10/01/19 06:01 112 H 17 106/50 97 10/01/19 05:46 109 H 19 99/45 96 10/01/19 05:31 121 H 19 119/46 96 10/01/19 05:16 116 H 20 100/46 96 10/01/19 05:01 121 H 35 H 108/43 96 10/01/19 04:46 118 H 19 107/42 97 10/01/19 04:31 118 H 24 H 90/58 96 10/01/19 04:16 116 H 25 H 111/42 99 10/01/19 04:01 98.8 F 111 H 21 95/48 100 10/01/19 03:46 114 H 23 H 93/39 100 10/01/19 03:31 109 H 17 98/36 100 10/01/19 03:26 106 H 17 101/59 95 10/01/19 03:18 73 18 87/31 99 10/01/19 03:14 24 H 69/39 100 10/01/19 03:12 23 H 67/43 98 10/01/19 03:06 98.8 F 105 H 67/43 10/01/19 03:01 23 H 73/40 100 10/01/19 03:00 103 H 73/40 10/01/19 02:46 21 94/68 99 10/01/19 02:45 90 94/68 10/01/19 02:33 99 H 76/32 10/01/19 02:32 104 H 17 76/32 100 10/01/19 02:31 103 H 23 H 76/48 100 10/01/19 02:16 21 89/43 10/01/19 02:15 101 H 89/43 10/01/19 02:11 98 H 21 89/34 94 10/01/19 02:01 98.0 F 102 H 19 78/59 100 10/01/19 02:00 103 H 19 78/59 100 10/01/19 01:47 100 H 23 H 86/41 100 10/01/19 01:46 101 H 26 H 81/42 99 10/01/19 01:45 101 H 86/41 10/01/19 01:33 103 H 21 98/34 100 10/01/19 01:31 92 H 23 H 79/58 98 10/01/19 01:30 106 H 94/34 10/01/19 01:16 94 H 22 97/42 99 10/01/19 01:15 93 H 97/42 10/01/19 01:11 95 H 26 H 93/43 100 10/01/19 01:06 89 18 73/36 99 10/01/19 01:01 86 22 60/38 99 10/01/19 01:00 87 60/38 10/01/19 00:56 85 21 68/36 99 10/01/19 00:52 88 24 H 54/34 99 10/01/19 00:51 77 18 56/37 98 10/01/19 00:50 94 H 54/34 10/01/19 00:32 95 H 23 H 76/38 99 10/01/19 00:31 95 H 23 H 78/44 100 10/01/19 00:18 92 H 24 H 85/47 99 10/01/19 00:16 96 H 19 78/29 99 10/01/19 00:15 88 85/47 10/01/19 00:01 83 21 112/59 100 10/01/19 00:00 83 112/59 09/30/19 23:47 98.7 F 80 22 118/57 100 09/30/19 23:45 97.5 F 89 23 H 118/57 100 09/30/19 22:07 97.5 F 16 92/73 94 09/30/19 21:55 97.5 F 75 18 103/42 98 09/30/19 21:52 99 09/30/19 21:46 75 103/42 98 09/30/19 21:38 75 98 09/30/19 21:01 80 109/49 98 09/30/19 20:53 82 106/44 98 09/30/19 20:49 84 100 09/30/19 19:46 112/48 09/30/19 19:31 81 105/45 100 09/30/19 19:16 81 114/47 100 09/30/19 19:08 82 112/47 98 09/30/19 19:01 86 100 09/30/19 18:53 84 100 09/30/19 18:32 83 102/50 100 09/30/19 18:17 120/45 09/30/19 18:12 88 122/60 100 09/30/19 17:32 87 119/50 100 09/30/19 17:24 97.5 F 57 L 18 119/50 96 Intake and Output 09/30/19 10/01/19 10/01/19 21:59 05:59 13:59 Intake Total 84 209 250 Output Total 150 350 Balance 84 59 -100 Intake: Nourishment/Supplement quantity 20 (ml) IV 84 189 250 Levophed 16 mg In Sodium 56 Chloride 0.9% 234 ml @ 10 MCG/ MIN 9.375 mls/hr IV Q24H [facility] Rx #:[id number] Sodium Bicarbonate Vial 150 Meq 84 133 In Dextrose 5% in Water 850 ml @ 125 mls/hr IV ONCE ONE Rx#: [id number] Vancomycin 1,000 mg In Sodium 250 Chloride 0.9% 250 ml @ 250 mls/ hr IV ONCE ONE Rx#:[id number] Output: Stool 150 350 Hemodialysis UF 0 Other: Meal Nourishment/Supplement Percent of Meal Consumed 25% Feeding Ability Assist with Tray Set Up Stool Color Brown Brown Green Green Stool Consistency Liquid Liquid Liquid Weight 111 lb 4.8 oz 111 lb 4.8 oz Intake & Output: Intake & Output 09/30/19 10/01/19 10/01/19 21:59 05:59 13:59 Intake Total 84 209 250 Output Total 150 350 Balance 84 59 -100 Weight 111 lb 4.8 oz 111 lb 4.8 oz Intake: Nourishment/Supplement quantity 20 (ml) IV 84 189 250 Levophed 16 mg In Sodium 56 Chloride 0.9% 234 ml @ 10 MCG/ MIN 9.375 mls/hr IV Q24H [facility] Rx #:[id number] Sodium Bicarbonate Vial 150 Meq 84 133 In Dextrose 5% in Water 850 ml @ 125 mls/hr IV ONCE ONE Rx#: [id number] Vancomycin 1,000 mg In Sodium 250 Chloride 0.9% 250 ml @ 250 mls/ hr IV ONCE ONE Rx#:[id number] Output: Stool 150 350 Hemodialysis UF 0 Other: Meal Nourishment/Supplement Percent of Meal Consumed 25% Feeding Ability Assist with Tray Set Up Stool Color Brown Brown Green Green Stool Consistency Liquid Liquid Liquid - General Appearance General appearance: cachectic EENT: ATNC Neck: no JVD Respiratory: no kyphosis Cardiology: no murmurs Gastrointestinal: normoactive bowel sounds Integumentary: no rash Neurologic: no focal deficit - Lab 09/30/19 18:00 09/30/19 18:00 Most recent lab results Calcium 10.1 mg/dl (8.6-10.4) 09/30/19 18:00 Assessment and Plan (1) ESRD (end stage renal disease) on dialysis Status: Acute Comment: ESRD. Had dialysis last night to correct electrolytes. Will check VBG today and plan for dialysis. She is usually volume depleted and will give saline before dialysis. Pneumonia. Agree with CT with contrast.
[2019-10-01] MEDS: 0.9 % SODIUM CHLORIDE 1,000 ML IV SCH (09:56)
[2019-10-01] MEDS: traMADol 50 MG TABLET PO PRN ×2 (10:09→21:58)
[2019-10-01] MEDS: NICOTINE 14 MG PATCH TOPICAL SCH (10:09)
--- NOTE | 2019-10-01 10:16 | Internal Med Progress Note ---
Medical - PN: Subj Patient information: Note initiated : 10/01/19 at 10:13 am Service Date, if different from initiated Date: [] Patient: Leonila Martinez a 74 y/o F admitted on 09/30/19 for possible pneumonia. Chief Complaint: [] Interval history: Ms. Martinez is a 74 year old F with known history of ESRD on hemodialysis who follows up with Dr. Phelps. Patient was recently admitted at [facility] with pneumonia and was hospitalized for 48 hours and subsequently discharged with improving white count and post hemodialysis. However over the last 3 to 4 days patient has gotten progressively weaker confused and has missed her hemodialysis due to profound weakness. She is gotten progressively short of breath and with increasing concerns family brought her to the ER. Initial work-up was consistent with basilar infiltrate/white count over 32,000. Bicarbonate 10, Platelets 1028, procalcitonin greater than 200. Nephrology was consulted for hemodialysis. Hospital service consulted after cultures were drawn patient was started on antibiotics. At the time evaluation patient is fatigued lethargic confused oriented only to self but unable to answer to most of the questions or provide a detailed history. Most of the history was obtained from review of medical records and from ER physician. 10/01-patient in septic shock requiring vasopressors after systolics dropped down to 50s. Status post fluid challenge/continued pressors. White count 32,000. On broad antibiotic coverage. Case discussed with nephrology. Patient this morning feels a little better. Remains critically ill. - Constitutional Vitals: Vital Signs Temp Pulse Resp BP Pulse Ox 98.8 F 102 H 28 H 92/40 94 10/01/19 04:01 10/01/19 08:46 10/01/19 08:46 10/01/19 08:46 10/01/19 08:46 Period Temp Pulse Resp BP Sys/Zuniga Pulse Ox Last 24 Hr 97.5 F-98.8 F 57-121 15-35 54-134/29-73 93-100 Intake and Output 09/30/19 10/01/19 10/01/19 21:59 05:59 13:59 Intake Total 84 209 382 Output Total 150 600 Balance 84 59 -218 Weight 111 lb 4.8 oz 111 lb 4.8 oz Intake & Output: Intake & Output 09/30/19 10/01/19 10/01/19 21:59 05:59 13:59 Intake Total 84 209 382 Output Total 150 600 Balance 84 59 -218 Weight 111 lb 4.8 oz 111 lb 4.8 oz Intake: Nourishment/Supplement quantity 20 (ml) IV 84 189 282 Levophed 16 mg In Sodium 56 32 Chloride 0.9% 234 ml @ 10 MCG/ MIN 9.375 mls/hr IV Q24H [facility] Rx #:[id number] Sodium Bicarbonate Vial 150 Meq 84 133 In Dextrose 5% in Water 850 ml @ 125 mls/hr IV ONCE ONE Rx#: [id number] Vancomycin 1,000 mg In Sodium 250 Chloride 0.9% 250 ml @ 250 mls/ hr IV ONCE ONE Rx#:[id number] Oral 100 Output: Stool 150 600 Hemodialysis UF 0 Other: Meal Nourishment/Supplement Breakfast Percent of Meal Consumed 25% 0% Feeding Ability Assist with Tray Set Up Stool Color Brown Brown Green Green Stool Consistency Liquid Liquid Liquid Exam: Confused but improved since previous day Nonlabored breathing Diminished breath sounds bases Telemetry tachycardia Medical - PN: Obj Da - Labs CBC & Chem 7: 09/30/19 18:00 09/30/19 18:00 Labs: Abnormal Lab Results 09/30/19 09/30/19 09/30/19 20:48 18:00 18:00 WBC RBC Hct MCH RDW Plt Count Gran % Lymph % (Auto) Gran # [place] # (Auto) ABG Methemoglobin 0.1 L VBG pH 7.45 H VBG pCO2 18.0 L* VBG pO2 56 H VBG HCO3 12.2 L VBG Total CO2 12.8 L VBG O2 Saturation 86.3 H VBG Base Excess -9.8 L Carboxyhemoglobin 3.0 H Total Hemoglobin 10.5 L Sodium 131 L Chloride 63 L Carbon Dioxide 10 L* BUN 76 H Creatinine 11.0 H* AST 118 H ALT 95 H Alkaline Phosphatase 321 H Troponin T 0.04 H* NT-Pro-B Natriuret Pep 60343.0 H Albumin 3.1 L Globulin 4.3 H Albumin/Globulin Ratio 0.7 L 09/30/19 18:00 WBC 32.3 H* RBC 3.19 L Hct 31.4 L MCH 35.1 H RDW 17.7 H Plt Count 1028 H* Gran % 89.1 H Lymph % (Auto) 7.5 L Gran # 28.77 H [place] # (Auto) 0.98 H ABG Methemoglobin VBG pH VBG pCO2 VBG pO2 VBG HCO3 VBG Total CO2 VBG O2 Saturation VBG Base Excess Carboxyhemoglobin Total Hemoglobin Sodium Chloride Carbon Dioxide BUN Creatinine AST ALT Alkaline Phosphatase Troponin T NT-Pro-B Natriuret Pep Albumin Globulin Albumin/Globulin Ratio Meds: Medications Acetaminophen (Tylenol) 650 mg PO Q4-6HP PRN; Protocol PRN Reason: Per Pain Protocol/Fever > 101 Last Admin: 10/01/19 08:15 Dose: 650 mg Documented by: Bisacodyl (Dulcolax) 10 mg IA Q2-3DAYS PRN PRN Reason: Constipation Cefepime HCl (Maxipime) 1 gm IV Q24H [facility] Last Admin: 10/01/19 08:14 Dose: 1 gm Documented by: Docusate Sodium (Colace) 100 mg PO BID [facility] Last Admin: 10/01/19 07:56 Dose: Not Given Documented by: Heparin Sodium (Porcine) (Heparin) 5,000 unit SQ Q12 [facility] Last Admin: 10/01/19 08:14 Dose: 5,000 unit Documented by: Heparin Sodium (Porcine) (Heparin Flush) 2 ml IV Q12 [facility] Acetaminophen (Ofirmev) 650 mg in 65 mls @ 130 mls/hr IV Q6HP PRN; Protocol PRN Reason: Per Pain Protocol/Fever > 101 Norepinephrine Bitartrate 16 (mg/ Sodium Chloride) 250 mls @ 9.375 mls/hr IV Q24H [facility]; Protocol Last Titration: 10/01/19 10:05 Dose: 4 mcg/min, 3.75 mls/hr Documented by: Sodium Chloride (Sodium Chloride 0.9%) 250 mls @ 20 mls/hr IV .[id number] [facility] Last Admin: 10/01/19 01:16 Dose: 20 mls/hr Documented by: Sodium Chloride (Sodium Chloride 0.9%) 1,000 mls @ 75 mls/hr IV .[id number] [facility] Last Admin: 10/01/19 09:56 Dose: 75 mls/hr Documented by: Iron Carb/Multivit/Cooper/Folic Acid (Multivitamin W/Minerals) 1 tab PO DAILY [facility] Last Admin: 10/01/19 08:15 Dose: 1 tab Documented by: Melatonin (Melatonin 3mg Tablet) 3 mg PO HSP PRN PRN Reason: Insomnia Nicotine (Nicoderm) 14 mg TOPICAL DAILY@1000 [facility] Last Admin: 10/01/19 10:09 Dose: 14 mg Documented by: Ondansetron HCl (Zofran) 4 mg IV Q4-6HP PRN; Protocol PRN Reason: Nausea And Vomiting Last Admin: 10/01/19 07:37 Dose: 4 mg Documented by: Pantoprazole Sodium (Protonix) 40 mg IV BIDAC [facility] Polyethylene Glycol (Miralax) 17 gm PO DAILYP PRN PRN Reason: Constipation Senna/Docusate Sodium (Senna Plus Tablet) 1 tab PO HS [facility] Last Admin: 09/30/19 22:26 Dose: Not Given Documented by: Sodium Chloride (Saline Flush) 10 ml IV Q8 [facility] Last Admin: 10/01/19 05:16 Dose: Not Given Documented by: Tramadol HCl (Ultram) 50 mg PO BIDP PRN PRN Reason: Pain Last Admin: 10/01/19 10:09 Dose: 50 mg Documented by: Vancomycin HCl (Vancomycin Per Pharmacy) 1 order IV UD [facility]; Protocol - ABG Interpretation ABG results: 09/30/19 20:48 ABG Methemoglobin 0.1 L VBG pH 7.45 H VBG pCO2 18.0 L* VBG pO2 56 H VBG HCO3 12.2 L VBG Total CO2 12.8 L VBG O2 Saturation 86.3 H VBG Base Excess -9.8 L Medical - PN: A/P - Time Spent With Patient Total time spent is greater than 50% in coordination of care (as documented) at patient's floor/unit and/or counseling patient: Greater than 35 minutes (Critical care time) (1) Severe sepsis with acute organ dysfunction Status: Acute Assessment and plan: * Septic shock with acute organ dysfunction-continue vasopressors/management guidelines. On vancomycin/cefepime. Management per guidelines * Acute mental status change secondary to severe sepsis * Bilateral pneumonia -continue antibiotic coverage. Aspiration precautions * Thrombocytosis likely reactive * ESRD on HD management nephrology * Chronic anemia * History of Crohn's disease * Full code * Prophylaxis heparin Plan * Continue ICU care * Wean vasopressors as tolerated * ESRD management per nephrology * Broad antibiotic coverage * PT OT nutrition support * Aspiration precautions Current Visit: Yes Medical - PN: Qual - VTE Deep Vein Thrombosis/Pulmonary Embolism Present on Admission: No
--- NOTE | 2019-10-01 10:33 | Consultation ---
DATE OF CONSULTATION: 10/01/2019 REASON FOR HOSPITALIZATION: Low bicarbonate and end-stage renal disease. HISTORY OF PRESENT ILLNESS: The patient is a 74-year-old female with past medical history significant for end-stage renal disease on hemodialysis. She dialyzes Mondays, Wednesdays, Fridays. She apparently missed her dialysis on Sunday, although I could not confirm that. She was here last week with pneumonia and was discharged. She felt sick. She was short of breath and slightly confused. For that reason, she was brought in to the emergency room. Initial workup showed a white count of 30,000 and a chest x-ray showed bilateral infiltrates. She was profoundly acidotic with a bicarbonate of 10. PAST MEDICAL HISTORY: Significant for: 1. End-stage renal disease on hemodialysis. 2. Microcytic anemia. 3. Adrenal deficiency. 4. 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 PAST SURGICAL HISTORY: 1. History of total abdominal hysterectomy with bilateral salpingo-oophorectomy. 2. Partial colectomy. 3. Cholecystectomy. 4. AV fistula placement. 5. Ileostomy. 6. Appendectomy. FAMILY HISTORY: Mother is healthy. Her father has COPD. SOCIAL HISTORY: The patient smokes about half pack of cigarettes per day. Denies any alcohol or drug use. She lives at home with her grandson. REVIEW OF SYSTEMS: Ten systems were reviewed and as indicated in history of present illness. PHYSICAL EXAMINATION: GENERAL: Alert, oriented x3 in no apparent distress. VITAL SIGNS: Blood pressure has been 80 to 90 systolic with a diastolic in the 60s, pulse rates have been in the 80s, temperature 97.5 with a pulse oximetry of 100%. HEENT: NC/AT. Pupils are reactive to light. External auditory canal appears normal. Oral cavity slightly dry. NECK: Supple. No jugular venous distention. No lymphadenopathy. LUNGS: Decreased air entry bilaterally, a few rales heard in the left base. CARDIAC: S1, S2 heard. No S3, S4. She has a 3/6 systolic murmur. ABDOMEN: Soft, nontender. No organomegaly. Still significant ileostomy output. EXTREMITIES: Did not show evidence of edema; difficult to palpate dorsalis pedis and posterior tibials. No skin rash or swelling is noted. NEUROLOGIC: Grossly intact. LABORATORY DATA: White count 32.3 with hemoglobin of 11.0 and a platelet count of 1028. Sodium 131, potassium 4.5, chloride 63, CO2 10, BUN 76, creatinine 11.0. She had hemodialysis for that at that time. ASSESSMENT AND PLAN: 1. Metabolic acidosis. Her blood gases showed pH of 7.45 with a pCO2 of 18, so she is fairly well compensated. We did treat her with dialysis. We will recheck it again and see the pH. 2. Hypochloremia related to GI loss from the ileostomy. We will replenish with normal saline. 3. Infectious process. It is okay to obtain a CT scan with contrast. We will dialyze her again today. SAL:michael Job ID: [id number] Doc ID: [id number] Bhavesh Russell MD
[2019-10-01 10:34] LABS: Hematocrit 25.4 % (34.1-44.9); Hemoglobin 9.1 g/dL (11.2-15.7); Mean Cell Volume 96.9 fL (80.0-100.0); Mean Corpuscular HGB Conc 35.8 g/dL (31.0-36.0); Platelet Count 907 K/mcL (140-440); RBC 2.62 M/mcL (3.59-5.38); Red Cell Distribution Width 17.5 % (11.5-14.5); WBC 36.4 K/mcL (4.50-11.00)
[2019-10-01 10:49] LABS: ALT/SGPT 96 U/l (0-40); AST/SGOT 127 U/l (0-37); Albumin 2.9 gm/dL (3.2-5.2); Albumin/Globulin Ratio 0.8 (1.0-2.3); Alkaline Phosphatase 435 U/L (39-117); Bilirubin,Direct 0.3 mg/dL (0.0-0.3); Bilirubin,Total 0.5 mg/dL (0.0-1.0); Calcium 9.5 mg/dl (8.6-10.4); Globulin 3.5 gm/dL (2.2-3.7); Glucose 85 mg/dL (70-105); Lactate Dehydrogenase 289 U/L (94-250); Triglycerides 264 mg/dl (<150); Uric Acid 2.9 mg/dL (2.5-8.0)
[2019-10-01 11:02] LABS: Anisocytosis 1+ (NONE SEEN); Band Neutrophils % 1 % (0-10); Lymphocytes % 8 % (15-49); Monocytes % (Manual) 5 % (1-12); Platelet Estimate MK INCR (NORMAL); RBC Morphology ABNORM (NORMAL); Segmented Neutrophils % 86 % (38-78)
[2019-10-01 11:14] LABS: Blood Urea Nitrogen 19 mg/dl (8-23); Carbon Dioxide 24 mmol/L (22-30); Chloride 90 mmol/L (96-108); Glomerular Filtration Rate 12
[2019-10-01 14:21] LABS: ABG Methemoglobin 0.3 % (0.4-1.5); VBG HCO3 24.8 mmol/L (24.0-28.0); VBG Oxygen Saturation 94.7 % (40.0-70.0); VBG PCO2 35.5 mmHg (41.0-51.0); VBG PH 7.46 U (7.32-7.42); VBG PO2 152 mmHg (25-40); VBG Total CO2 25.9 mmol/L (25.0-29.0)
[2019-10-01] MEDS: PANTOPRAZOLE 40 MG VIAL IV SCH (17:42)
[2019-10-01] MEDS: MELATONIN 3 MG TABLET PO PRN (21:58)
[2019-10-01] MEDS: SENNOSIDES/DOCUSATE SODIUM 1 TAB TABLET PO SCH (21:59)
[2019-10-02] MEDS: 0.9 % SODIUM CHLORIDE 250 ML IV SCH ×3 (02:06→22:50)
[2019-10-02] MEDS: 0.9 % SODIUM CHLORIDE 10 ML SYRINGE IV SCH ×3 (04:52→21:44)
[2019-10-02] MEDS: NOREPINEPHRINE BITARTRATE 16 MG in 0.9 % SODIUM CHLORIDE 234 ML IV SCH (04:52)
--- NOTE | 2019-10-02 06:41 | XRay Report ---
CLINICAL INFORMATION:Pneumonia TECHNIQUE: AP portable semiupright chest x-ray COMPARISON: Previous chest x-rays dated 09/30/2019, 09/25/2019 FINDINGS:Left lower lobe is improved. Findings are consistent with resolution of left lower lobe pneumonia. No new focal pulmonary parenchymal infiltrate or mass. Heart size and vascularity are normal. No pulmonary edema or pulmonary congestion. IMPRESSION: 1. Improved chest x-ray 2. No focal parenchymal infiltrate or mass Interpreted and Authenticated by: Ramón Joya 10/02/19
[2019-10-02] MEDS: PANTOPRAZOLE 40 MG VIAL IV SCH ×2 (06:49→17:55)
[2019-10-02] MEDS: DOCUSATE SODIUM 100 MG CAPSULE PO SCH ×2 (07:52→21:43)
[2019-10-02] MEDS: HEPARIN 5,000 UNIT/ML VIAL SQ SCH ×2 (08:01→21:43)
[2019-10-02] MEDS: CEFEPIME 1 GM VIAL IV SCH (08:01)
[2019-10-02] MEDS: MULTIVIT,THER IRON,CA,FA & MIN 1 TABLET PO SCH (08:01)
[2019-10-02 08:20] LABS: Hematocrit 19.1 % (34.1-44.9); Hemoglobin 6.5 g/dL (11.2-15.7); Mean Cell Volume 103.8 fL (80.0-100.0); Mean Platelet Volume 9.2 fL (7.4-10.4); Platelet Count 534 K/mcL (140-440); RBC 1.84 M/mcL (3.59-5.38); Red Cell Distribution Width 17.4 % (11.5-14.5); WBC 17.4 K/mcL (4.50-11.00)
[2019-10-02 08:23] LABS: Anisocytosis 1+ (NONE SEEN); Eosinophils % (Manual) 1 % (0-7); Lymphocytes % 8 % (15-49); Macrocytosis 1+ (NONE SEEN); Monocytes % (Manual) 6 % (1-12); Platelet Estimate INCREASED (NORMAL); RBC Morphology ABNORM (NORMAL); Segmented Neutrophils % 85 % (38-78)
[2019-10-02 09:01] LABS: ALT/SGPT 59 U/l (0-40); AST/SGOT 63 U/l (0-37); Albumin 2.3 gm/dL (3.2-5.2); Albumin/Globulin Ratio 0.9 (1.0-2.3); Alkaline Phosphatase 302 U/L (39-117); Bilirubin,Direct < 0.2 mg/dL (0.0-0.3); Bilirubin,Total 0.4 mg/dL (0.0-1.0); Blood Urea Nitrogen 10 mg/dl (8-23); Calcium 8.4 mg/dl (8.6-10.4); Carbon Dioxide 23 mmol/L (22-30); Chloride 97 mmol/L (96-108); Globulin 2.6 gm/dL (2.2-3.7); Glomerular Filtration Rate 21; Glucose 79 mg/dL (70-105); Lactate Dehydrogenase 228 U/L (94-250); Phosphorous 2.7 mg/dL (2.7-4.5); Triglycerides 146 mg/dl (<150)
[2019-10-02 09:17] LABS: Vancomycin,Random 13.8 ug/mL
[2019-10-02] MEDS: NICOTINE 14 MG PATCH TOPICAL SCH (09:37)
[2019-10-02] MEDS: ACETAMINOPHEN 325 MG TABLET PO PRN (09:43)
[2019-10-02] MEDS: traMADol 50 MG TABLET PO PRN ×2 (09:43→22:15)
--- NOTE | 2019-10-02 09:57 | Nephrology Progress Note ---
Subjective Patient information: Note initiated : 10/02/19 at 9:56 am Service Date, if different from initiated Date: [] Patient: Leonila Martinez 74 y/o F admitted on 09/30/19 for possible pneumonia. Chief Complaint: []Less confused. Feels better. Objective - Vital Signs Vital signs: Vital Signs Temp Pulse Resp BP Pulse Ox 10/02/19 08:00 23 H 95 10/02/19 07:37 99.5 F H 23 H 132/76 95 10/02/19 06:31 82 29 H 119/46 96 10/02/19 06:01 89 20 100/66 97 10/02/19 05:31 88 28 H 113/47 96 10/02/19 05:01 92 H 26 H 107/46 98 10/02/19 04:42 91 H 18 110/43 97 10/02/19 04:01 89 28 H 106/46 97 10/02/19 03:31 28 H 108/46 97 10/02/19 03:16 30 H 109/45 99 10/02/19 03:01 27 H 109/49 98 10/02/19 02:46 27 H 107/44 99 10/02/19 02:31 27 H 105/46 10/02/19 02:16 31 H 106/47 10/02/19 02:01 24 H 115/49 10/02/19 02:00 22 97 10/02/19 01:46 25 H 113/49 10/02/19 01:34 21 119/52 10/02/19 01:31 25 H 94/43 10/02/19 01:16 28 H 113/50 10/02/19 01:01 19 117/46 97 10/02/19 00:46 26 H 114/49 99 10/02/19 00:31 24 H 104/46 98 10/02/19 00:16 27 H 98/42 97 10/02/19 00:01 25 H 112/50 99 10/01/19 23:46 98.7 F 23 H 104/49 95 10/01/19 23:31 22 110/47 10/01/19 23:16 23 H 110/50 10/01/19 23:01 27 H 107/47 10/01/19 22:50 97 10/01/19 22:49 19 102/45 97 10/01/19 22:46 28 H 89/42 98 10/01/19 22:31 28 H 108/49 99 10/01/19 22:16 27 H 99/48 99 10/01/19 22:01 18 111/40 97 10/01/19 21:46 17 115/47 99 10/01/19 21:31 24 H 107/49 98 10/01/19 21:16 23 H 102/50 97 10/01/19 21:01 26 H 103/51 98 10/01/19 20:46 24 H 104/46 99 10/01/19 20:31 26 H 98/47 96 10/01/19 20:16 22 101/47 97 10/01/19 20:01 99.1 F H 23 H 100/46 95 10/01/19 20:00 95 10/01/19 19:46 22 99/47 10/01/19 19:31 21 106/50 10/01/19 19:16 24 H 89/57 10/01/19 19:01 23 H 105/48 10/01/19 18:46 33 H 104/56 10/01/19 18:31 14 105/53 10/01/19 18:16 27 H 105/53 10/01/19 18:01 19 100/54 10/01/19 17:46 18 112/57 10/01/19 17:31 91 H 22 102/42 99 10/01/19 17:22 86 21 106/43 97 10/01/19 17:16 88 20 94/40 100 10/01/19 17:15 97.7 F 90 94/40 10/01/19 17:01 89 28 H 90/47 100 10/01/19 16:46 17 92/44 10/01/19 16:45 88 92/44 10/01/19 16:31 86 28 H 89/44 96 10/01/19 16:30 86 89/44 10/01/19 16:16 88 17 84/47 96 10/01/19 16:15 88 84/47 10/01/19 16:01 86 21 93/50 98 10/01/19 15:46 86 17 95/48 94 10/01/19 15:45 87 95/48 10/01/19 15:31 85 23 H 76/44 99 10/01/19 15:30 84 76/44 10/01/19 15:16 20 83/40 10/01/19 15:15 85 83/40 10/01/19 15:01 92 H 26 H 96/48 100 10/01/19 15:00 94 H 96/48 10/01/19 14:46 92 H 23 H 95/48 98 10/01/19 14:45 93 H 95/48 10/01/19 14:31 91 H 19 106/50 98 10/01/19 14:30 93 H 106/50 10/01/19 14:16 93 H 19 105/42 98 10/01/19 14:15 94 H 105/42 10/01/19 14:05 92 H 93/43 10/01/19 14:01 92 H 23 H 93/43 99 10/01/19 14:00 20 92 10/01/19 13:50 98.6 F 87 106/52 10/01/19 13:49 91 H 20 106/42 97 10/01/19 13:31 97 H 26 H 100/52 97 10/01/19 13:01 91 H 25 H 95/45 96 10/01/19 12:31 95 H 22 109/54 97 10/01/19 12:24 100 H 22 123/46 97 10/01/19 12:01 98 H 22 128/50 98 10/01/19 11:31 99 H 20 114/49 99 10/01/19 11:01 26 H 107/51 10/01/19 10:31 95 H 22 113/48 97 10/01/19 10:16 94 H 26 H 114/44 97 10/01/19 10:01 95 H 26 H 97/39 96 Intake and Output 10/01/19 10/02/19 10/02/19 21:59 05:59 13:59 Intake Total 86 1983 100 Output Total 700 250 Balance -614 1733 100 Intake: IV 26 1053 Sodium Chloride 0.9% 1,000 ml @ 1000 75 mls/hr IV .[id number] [facility] Rx#: [id number] Levophed 16 mg In Sodium 26 53 Chloride 0.9% 234 ml @ 10 MCG/ MIN 9.375 mls/hr IV Q24H [facility] Rx #:[id number] Oral 60 930 100 Output: Gastric Drainage 250 Right Upper Quadrant 250 Stool 700 Hemodialysis UF 0 Other: Stool Size Moderate Moderate Moderate Stool Color Brown Brown Brown Green Green Green Stool Consistency Liquid Liquid Liquid Weight 113 lb 3.2 oz Intake & Output: Intake & Output 10/01/19 10/02/19 10/02/19 21:59 05:59 13:59 Intake Total 86 1983 100 Output Total 700 250 Balance -614 1733 100 Weight 113 lb 3.2 oz Intake: IV 26 1053 Sodium Chloride 0.9% 1,000 ml @ 1000 75 mls/hr IV .[id number] [facility] Rx#: [id number] Levophed 16 mg In Sodium 26 53 Chloride 0.9% 234 ml @ 10 MCG/ MIN 9.375 mls/hr IV Q24H [facility] Rx #:[id number] Oral 60 930 100 Output: Gastric Drainage 250 Right Upper Quadrant 250 Stool 700 Hemodialysis UF 0 Other: Stool Size Moderate Moderate Moderate Stool Color Brown Brown Brown Green Green Green Stool Consistency Liquid Liquid Liquid - General Appearance General appearance: cachectic EENT: ATNC Neck: no JVD Cardiology: no murmurs Gastrointestinal: normoactive bowel sounds Integumentary: no rash Neurologic: no focal deficit - Lab 10/02/19 04:47 10/02/19 04:47 Most recent lab results Calcium 8.4 mg/dl (8.6-10.4) L 10/02/19 04:47 Phosphorus 2.7 mg/dL (2.7-4.5) 10/02/19 04:47 Magnesium 1.7 mg/dL (1.6-2.5) 10/02/19 04:47 Assessment and Plan (1) ESRD (end stage renal disease) on dialysis Status: Acute Comment: ESRD. Had dialysis last night to correct electrolytes. Anemia. transfuse 2 units of prbc. Pneumonia. Agree with CT with contrast.
[2019-10-02] MEDS ORDERED: 0.9 % SODIUM CHLORIDE 250 ML IV SCH ×2 (10:00→19:30)
--- NOTE | 2019-10-02 10:35 | Internal Med Progress Note ---
Medical - PN: Subj Patient information: Note initiated : 10/02/19 at 10:30 am Service Date, if different from initiated Date: [] Patient: Leonila Martinez a 74 y/o F admitted on 09/30/19 for possible pneumonia. Chief Complaint: [] Interval history: Ms. Martinez is a 74 year old F with known history of ESRD on hemodialysis who follows up with Dr. Phelps. Patient was recently admitted at [facility] with pneumonia and was hospitalized for 48 hours and subsequently discharged with improving white count and post hemodialysis. However over the last 3 to 4 days patient has gotten progressively weaker confused and has missed her hemodialysis due to profound weakness. She is gotten progressively short of breath and with increasing concerns family brought her to the ER. Initial work-up was consistent with basilar infiltrate/white count over 32,000. Bicarbonate 10, Platelets 1028, procalcitonin greater than 200. Nephrology was consulted for hemodialysis. Hospital service consulted after cultures were drawn patient was started on antibiotics. At the time evaluation patient is fatigued lethargic confused oriented only to self but unable to answer to most of the questions or provide a detailed history. Most of the history was obtained from review of medical records and from ER physician. 10/01-patient in septic shock requiring vasopressors after systolics dropped down to 50s. Status post fluid challenge/continued pressors. White count 32,000. On broad antibiotic coverage. Case discussed with nephrology. Patient this morning feels a little better. Remains critically ill. 10/02-white count down from 36,000-17,000 however appears to be a lab error as all cell lines down (Plat 907-> 534 Hgb 9.1->6.5_. Repeat CBC. Transfuse if hemoglobin less than 6.5. CT chest abdomen pelvis to rule out intra-abdominal focus of leukemoid reaction/abscess. Patient clinically improved and off pressors. - Constitutional Vitals: Vital Signs Temp Pulse Resp BP Pulse Ox 99.5 F H 82 23 H 132/76 95 10/02/19 07:37 10/02/19 06:31 10/02/19 08:00 10/02/19 07:37 10/02/19 08:00 Period Temp Pulse Resp BP Sys/Zuniga Pulse Ox Last 24 Hr 97.7 F-99.5 F 82-100 14-33 76-132/40-76 92-100 Intake and Output 10/01/19 10/02/19 10/02/19 21:59 05:59 13:59 Intake Total 86 1982 100 Output Total 700 250 Balance -614 1733 100 Weight 113 lb 3.2 oz Intake & Output: Intake & Output 10/01/19 10/02/19 10/02/19 21:59 05:59 13:59 Intake Total 86 1982 100 Output Total 700 250 Balance -614 1733 100 Weight 113 lb 3.2 oz Intake: IV 26 1053 Sodium Chloride 0.9% 1,000 ml @ 1000 75 mls/hr IV .[id number] DENAE Rx#: [id number] Levophed 16 mg In Sodium 26 53 Chloride 0.9% 234 ml @ 10 MCG/ MIN 9.375 mls/hr IV Q24H DENAE Rx #:[id number] Oral 60 930 100 Output: Gastric Drainage 250 Right Upper Quadrant 250 Stool 700 Hemodialysis UF 0 Other: Stool Size Moderate Moderate Moderate Stool Color Brown Brown Brown Green Green Green Stool Consistency Liquid Liquid Liquid General appearance: no acute distress Exam: Alert and respond to commands Nonlabored breathing Right arm infiltrated and swollen minimally tender No lymphedema Medical - PN: Obj Da - Labs CBC & Chem 7: 10/02/19 04:47 10/02/19 04:47 Labs: Abnormal Lab Results 10/02/19 10/02/19 10/01/19 04:47 04:47 13:53 WBC 17.4 H RBC 1.84 L Hgb 6.5 L* Hct 19.1 L* MCV 103.8 H MCH 35.3 H RDW 17.4 H Plt Count 534 H Gran % Lymph % (Auto) Gran # [place] # (Auto) Seg Neutrophils % 85 H Lymphocytes % 8 L Platelet Estimate RBC Morphology Abnorm A Anisocytosis 1+ A Macrocytosis 1+ A ABG Methemoglobin 0.3 L VBG pH 7.46 H VBG pCO2 35.5 L VBG pO2 152 H VBG HCO3 VBG Total CO2 VBG O2 Saturation 94.7 H VBG Base Excess Carboxyhemoglobin 4.0 H Total Hemoglobin 8.0 L Sodium Chloride Carbon Dioxide Anion Gap BUN Creatinine 2.3 H Uric Acid 2.0 L Calcium 8.4 L GGT 377 H AST 63 H ALT 59 H Alkaline Phosphatase 302 H Lactate Dehydrogenase Troponin T NT-Pro-B Natriuret Pep Total Protein 4.9 L Albumin 2.3 L Globulin Albumin/Globulin Ratio 0.9 L Triglycerides 10/01/19 10/01/19 09/30/19 09:18 09:18 20:48 WBC 36.4 H* RBC 2.62 L Hgb 9.1 L Hct 25.4 L MCV MCH 34.7 H RDW 17.5 H Plt Count 907 H* Gran % Lymph % (Auto) Gran # [place] # (Auto) Seg Neutrophils % 86 H Lymphocytes % 8 L Platelet Estimate Mk incr A RBC Morphology Abnorm A Anisocytosis 1+ A Macrocytosis ABG Methemoglobin 0.1 L VBG pH 7.45 H VBG pCO2 18.0 L* VBG pO2 56 H VBG HCO3 12.2 L VBG Total CO2 12.8 L VBG O2 Saturation 86.3 H VBG Base Excess -9.8 L Carboxyhemoglobin 3.0 H Total Hemoglobin 10.5 L Sodium Chloride 90 L Carbon Dioxide Anion Gap 23.0 H BUN Creatinine 3.7 H Uric Acid Calcium GGT 546 H AST 127 H ALT 96 H Alkaline Phosphatase 435 H Lactate Dehydrogenase 289 H Troponin T NT-Pro-B Natriuret Pep Total Protein Albumin 2.9 L Globulin Albumin/Globulin Ratio 0.8 L Triglycerides 264 H 09/30/19 09/30/19 09/30/19 18:00 18:00 18:00 WBC 32.3 H* RBC 3.19 L Hgb Hct 31.4 L MCV MCH 35.1 H RDW 17.7 H Plt Count 1028 H* Gran % 89.1 H Lymph % (Auto) 7.5 L Gran # 28.77 H [place] # (Auto) 0.98 H Seg Neutrophils % Lymphocytes % Platelet Estimate RBC Morphology Anisocytosis Macrocytosis ABG Methemoglobin VBG pH VBG pCO2 VBG pO2 VBG HCO3 VBG Total CO2 VBG O2 Saturation VBG Base Excess Carboxyhemoglobin Total Hemoglobin Sodium 131 L Chloride 63 L Carbon Dioxide 10 L* Anion Gap BUN 76 H Creatinine 11.0 H* Uric Acid Calcium GGT AST 118 H ALT 95 H Alkaline Phosphatase 321 H Lactate Dehydrogenase Troponin T 0.04 H* NT-Pro-B Natriuret Pep 69739.0 H Total Protein Albumin 3.1 L Globulin 4.3 H Albumin/Globulin Ratio 0.7 L Triglycerides Meds: Medications Acetaminophen (Tylenol) 650 mg PO Q4-6HP PRN; Protocol PRN Reason: Per Pain Protocol/Fever > 101 Last Admin: 10/02/19 09:43 Dose: 650 mg Documented by: Bisacodyl (Dulcolax) 10 mg CO Q2-3DAYS PRN PRN Reason: Constipation Cefepime HCl (Maxipime) 1 gm IV Q24H [facility] Last Admin: 10/02/19 08:01 Dose: 1 gm Documented by: Docusate Sodium (Colace) 100 mg PO BID [facility] Last Admin: 10/02/19 07:52 Dose: Not Given Documented by: Heparin Sodium (Porcine) (Heparin) 5,000 unit SQ Q12 [facility] Last Admin: 10/02/19 08:01 Dose: 5,000 unit Documented by: Acetaminophen (Ofirmev) 650 mg in 65 mls @ 130 mls/hr IV Q6HP PRN; Protocol PRN Reason: Per Pain Protocol/Fever > 101 Norepinephrine Bitartrate 16 (mg/ Sodium Chloride) 250 mls @ 9.375 mls/hr IV Q24H [facility]; Protocol Last Admin: 10/02/19 04:52 Dose: Not Given Documented by: Sodium Chloride (Sodium Chloride 0.9%) 250 mls @ 20 mls/hr IV .[id number] [facility] Last Admin: 10/02/19 02:06 Dose: Not Given Documented by: Sodium Chloride (Sodium Chloride 0.9%) 1,000 mls @ 75 mls/hr IV .[id number] [facility] Last Admin: 10/02/19 00:00 Dose: 75 mls/hr Documented by: Sodium Chloride (Sodium Chloride 0.9%) 250 mls @ 20 mls/hr IV .[id number] [facility] Stop: 10/02/19 22:29 Iron Carb/Multivit/Extension Work Director/Folic Acid (Multivitamin W/Minerals) 1 tab PO DAILY [facility] Last Admin: 10/02/19 08:01 Dose: 1 tab Documented by: Melatonin (Melatonin 3mg Tablet) 3 mg PO HSP PRN PRN Reason: Insomnia Last Admin: 10/01/19 21:58 Dose: 3 mg Documented by: Nicotine (Nicoderm) 14 mg TOPICAL DAILY@1000 [facility] Last Admin: 10/02/19 09:37 Dose: 14 mg Documented by: Ondansetron HCl (Zofran) 4 mg IV Q4-6HP PRN; Protocol PRN Reason: Nausea And Vomiting Last Admin: 10/01/19 07:37 Dose: 4 mg Documented by: Pantoprazole Sodium (Protonix) 40 mg IV BIDAC [facility] Last Admin: 10/02/19 06:49 Dose: 40 mg Documented by: Polyethylene Glycol (Miralax) 17 gm PO DAILYP PRN PRN Reason: Constipation Senna/Docusate Sodium (Senna Plus Tablet) 1 tab PO HS [facility] Last Admin: 10/01/19 21:59 Dose: Not Given Documented by: Sodium Chloride (Saline Flush) 10 ml IV Q8 [facility] Last Admin: 10/02/19 04:52 Dose: Not Given Documented by: Tramadol HCl (Ultram) 50 mg PO BIDP PRN PRN Reason: Pain Last Admin: 10/02/19 09:43 Dose: 50 mg Documented by: Vancomycin HCl (Vancomycin Per Pharmacy) 1 order IV UD [facility]; Protocol - ABG Interpretation ABG results: 09/30/19 10/01/19 20:48 13:53 ABG Methemoglobin 0.1 L 0.3 L VBG pH 7.45 H 7.46 H VBG pCO2 18.0 L* 35.5 L VBG pO2 56 H 152 H VBG HCO3 12.2 L 24.8 VBG Total CO2 12.8 L 25.9 VBG O2 Saturation 86.3 H 94.7 H VBG Base Excess -9.8 L 1.0 Medical - PN: A/P - Time Spent With Patient Total time spent is greater than 50% in coordination of care (as documented) at patient's floor/unit and/or counseling patient: 25 - 35 minutes (1) Severe sepsis with acute organ dysfunction Status: Acute Assessment and plan: * Septic shock with acute organ dysfunction-improved and now off vasopressors. Continue vancomycin/cefepime. * Leukemoid reaction with white count 36,000. Down to 17 K, repeat CBC. CT chest abdomen pelvis with contrast * Acute mental status change secondary to severe sepsis-clinically improved and now alert and lucid and respond to commands * Bilateral pneumonia -clinically improving on antibiotic coverage. Continue aspiration precautions * Anemia of chronic disease. Hemoglobin 6.5 down from 9.1-no evidence of bleeding. Repeat CBC and if low 2 units PRBC transfusion * Thrombocytosis likely reactive * ESRD on HD management nephrology * History of Crohn's disease * Full code * Prophylaxis heparin Plan * CT chest abdomen pelvis with contrast * Repeat CBC * Units PRBC transfusion if hemoglobin lower than 7 * ESRD management per nephrology * Continue broad antibiotic coverage * PT OT nutrition support * Case management coordinate SNF transfer Current Visit: Yes Medical - PN: Qual - VTE Deep Vein Thrombosis/Pulmonary Embolism Present on Admission: No
[2019-10-02 11:49] LABS: Iron 108 mcg/dl (37-145); TIBC Calculation 128 ug/dl (228-428); Transferrin % Saturation 84 % (15-50)
[2019-10-02] MEDS ORDERED: VANCOMYCIN 1,000 MG in 0.9 % SODIUM CHLORIDE 250 ML IV ONE (12:00)
[2019-10-02 12:30] LABS: Basophils # (Auto) 0.03 K/mcL (0.00-0.30); Basophils % (Auto) 0.2 % (0.0-2.0); Eosinophils # (Auto) 0.21 K/mcL (0.00-0.70); Eosinophils % (Auto) 1.3 % (0.0-7.0); Granulocytes % (Auto) 80.4 % (38.0-78.0); Hematocrit 19.9 % (34.1-44.9); Hemoglobin 6.7 g/dL (11.2-15.7); Lymphocytes # (Auto) 2.06 K/mcL (1.50-4.80); Lymphocytes % (Auto) 12.5 % (15.5-49.0); Mean Cell Volume 104.2 fL (80.0-100.0); Mean Corpuscular HGB Conc 33.7 g/dL (31.0-36.0); Monocytes # (Auto) 0.92 K/mcL (0.10-0.90); Monocytes % (Auto) 5.6 % (1.0-12.0); Platelet Count 440 K/mcL (140-440); RBC 1.91 M/mcL (3.59-5.38); Red Cell Distribution Width 18.1 % (11.5-14.5); WBC 16.4 K/mcL (4.50-11.00)
--- NOTE | 2019-10-02 13:29 | Cat Scan Report ---
CLINICAL INFORMATION: Elevated white blood cell count COMPARISON: Previous chest x-ray dated 10/02/2019. Previous chest CT scan dated 09/25/2019 and 11/11/2013 TECHNIQUE: Axial images were obtained through the chest,abdomen and pelvis. Sagittally and coronally reformatted images. Intravenous contrast material was not administered. Oral contrast material was given FINDINGS: Chest CT: Lungs:Mild right lower lobe atelectasis. Right lung is otherwise negative. No focal mass. No consolidation. There is left lower lobe volume loss and consolidation. This is improved with increased aeration since 09/25/2019. There is residual abnormality. No other focal pulmonary parenchymal abnormality. There is no discrete mass. There is no significant bronchiectasis or honeycombing. No interlobular septal thickening Mediastinum:No pathologic mediastinal adenopathy. Savita are negative to the limits of noncontrast enhanced examination. Heart:No significant cardiomegaly. There is calcified coronary artery disease. No significant pericardial effusion. Pleura:No pleural effusion. No pleural-based mass Axilla, supraclavicular regions, chest wall:No pathologic axillary or supraclavicular adenopathy. Musculoskeletal:No thoracic compression fractures. Sternum and ribs are negative Abdomen/Pelvis: Liver:Multiple low density lesions within the liver. Appearance is consistent with simple cysts. These have increased in size and number since 2013. Liver contour is smooth. No evidence for cirrhosis. Gallbladder, bilary:Surgical clips in the gallbladder fossa. No dilated bile ducts Spleen:No splenomegaly Pancreas:Negative. No detectable pancreatic mass. No peripancreatic abnormality Adrenal glands:Negative Kidneys, ureters, bladder:Kidneys are atrophic. There is no hydronephrosis. No hydroureter. There is contrast material within the urinary bladder Gastrointestinal:There is a right lower quadrant ostomy. Transverse, descending, sigmoid colons are present. Rectum is present. There is no mechanical small bowel obstruction. Vascular:Dense calcification of the abdominal aorta. Patency is not determined. No significant abdominal aortic aneurysm Lymphatic:No retroperitoneal or significant mesenteric adenopathy Mesentery, peritoneum:No free intraperitoneal fluid. There is no intra-abdominal abscess Reproductive:Uterus is not identified. There is no adnexal mass Musculoskeletal:No lumbar compression fractures. No lytic lesions. There is lumbar scoliosis. Sacrum and pelvis are negative. There is an anterior abdominal wall defect. This may be postsurgical. Clinical correlation necessary. IMPRESSION: 1. Left lower lobe volume loss, improved since 09/25/2019 2. Bilateral renal atrophy. No hydronephrosis 3. Anterior abdominal wall defect is probably postsurgical 4. Multiple low-density lesions within the liver consistent with cysts. These have increased in size and number since 2013 5. No intra-abdominal abscess The exam was performed using radiation dose optimization techniques including, but not limited to, automated exposure control, adjustment of the mA and/or kV according to patient size and use of iterative reconstruction technique. Interpreted and Authenticated by: Ramón Joya 10/02/19
[2019-10-02] MEDS: 0.9 % SODIUM CHLORIDE 1,000 ML IV SCH ×3 (15:34→22:50)
[2019-10-02] MEDS: SENNOSIDES/DOCUSATE SODIUM 1 TAB TABLET PO SCH (21:43)
[2019-10-03] MEDS: NOREPINEPHRINE BITARTRATE 16 MG in 0.9 % SODIUM CHLORIDE 234 ML IV SCH (01:39)
[2019-10-03] MEDS: 0.9 % SODIUM CHLORIDE 1,000 ML IV SCH ×2 (04:00→17:07)
[2019-10-03] MEDS: 0.9 % SODIUM CHLORIDE 250 ML IV SCH ×2 (04:26→17:08)
[2019-10-03] MEDS: 0.9 % SODIUM CHLORIDE 10 ML SYRINGE IV SCH ×3 (05:52→20:44)
[2019-10-03 06:19] LABS: Hemoglobin 8.3 g/dL (11.2-15.7); Mean Corpuscular HGB Conc 34.6 g/dL (31.0-36.0); Mean Platelet Volume 8.8 fL (7.4-10.4); Platelet Count 368 K/mcL (140-440); Red Cell Distribution Width 18.5 % (11.5-14.5); WBC 13.3 K/mcL (4.50-11.00)
[2019-10-03 06:49] LABS: Vancomycin,Random 28.7 ug/mL
[2019-10-03] MEDS: PANTOPRAZOLE 40 MG VIAL IV SCH ×2 (06:50→19:18)
[2019-10-03 06:51] LABS: ALT/SGPT 42 U/l (0-40); AST/SGOT 37 U/l (0-37); Albumin 2.3 gm/dL (3.2-5.2); Alkaline Phosphatase 222 U/L (39-117); Bilirubin,Total 0.5 mg/dL (0.0-1.0); Calcium 7.9 mg/dl (8.6-10.4); Carbon Dioxide 21 mmol/L (22-30); Chloride 99 mmol/L (96-108); Glomerular Filtration Rate 11; Glucose 91 mg/dL (70-105); Lactate Dehydrogenase 176 U/L (94-250); Triglycerides 132 mg/dl (<150)
[2019-10-03 06:52] LABS: Albumin/Globulin Ratio 0.8 (1.0-2.3); Bilirubin,Direct < 0.2 mg/dL (0.0-0.3); Blood Urea Nitrogen 24 mg/dl (8-23); Globulin 2.8 gm/dL (2.2-3.7); Phosphorous 2.6 mg/dL (2.7-4.5)
[2019-10-03 07:42] LABS: Anisocytosis 1+ (NONE SEEN); Eosinophils % (Manual) 5 % (0-7); Lymphocytes % 8 % (15-49); Monocytes % (Manual) 4 % (1-12); Platelet Estimate NORMAL (NORMAL); RBC Morphology ABNORM (NORMAL); Reactive Lymphocytes 1 % (0-2); Segmented Neutrophils % 82 % (38-78)
[2019-10-03] MEDS ORDERED: NOREPINEPHRINE BITARTRATE 16 MG in 0.9 % SODIUM CHLORIDE 234 ML IV PRN (07:45)
[2019-10-03] MEDS: HEPARIN 5,000 UNIT/ML VIAL SQ SCH ×2 (08:07→20:44)
[2019-10-03] MEDS: CEFEPIME 1 GM VIAL IV SCH (08:07)
[2019-10-03] MEDS: DOCUSATE SODIUM 100 MG CAPSULE PO SCH ×2 (08:07→20:44)
[2019-10-03] MEDS: MULTIVIT,THER IRON,CA,FA & MIN 1 TABLET PO SCH (08:07)
[2019-10-03] MEDS: traMADol 50 MG TABLET PO PRN ×2 (08:15→22:46)
[2019-10-03] MEDS: ACETAMINOPHEN 325 MG TABLET PO PRN (08:15)
[2019-10-03] MEDS: NICOTINE 14 MG PATCH TOPICAL SCH (09:10)
--- NOTE | 2019-10-03 15:51 | Nephrology Progress Note ---
Subjective Patient information: Note initiated : 10/03/19 at 3:50 pm Service Date, if different from initiated Date: [] Patient: Leonila Martinez 74 y/o F admitted on 09/30/19 for possible pneumonia. Chief Complaint: [] Feeling better. Her right arm hurts. Objective - Vital Signs Vital signs: Vital Signs Temp Pulse Resp BP Pulse Ox 10/03/19 15:20 98 F 76 123/64 10/03/19 14:52 76 98 10/03/19 11:57 99 F 20 117/57 97 10/03/19 10:01 84 25 H 117/57 97 10/03/19 09:02 87 22 142/105 95 10/03/19 08:01 75 19 139/60 98 10/03/19 07:10 97.3 F 23 H 146/55 97 10/03/19 07:01 75 17 146/55 100 10/03/19 06:01 73 20 150/54 96 10/03/19 05:01 72 22 142/59 100 10/03/19 04:52 98.0 F 10/03/19 04:01 68 24 H 123/53 98 10/03/19 03:01 69 21 124/52 98 10/03/19 02:01 71 26 H 136/57 99 10/03/19 01:01 78 28 H 139/57 98 10/03/19 00:01 98.4 F 77 11 L 144/61 99 10/02/19 23:46 95 10/02/19 23:01 80 21 125/57 100 10/02/19 22:01 77 23 H 111/49 96 10/02/19 21:01 91 H 21 158/60 98 10/02/19 20:01 99.2 F H 91 H 28 H 112/49 95 10/02/19 19:48 91 H 28 H 118/51 96 10/02/19 19:01 86 30 H 113/46 97 10/02/19 18:01 88 26 H 134/59 96 10/02/19 17:51 89 26 H 146/61 96 10/02/19 17:41 90 23 H 148/65 98 10/02/19 17:33 77 16 123/58 96 10/02/19 17:20 79 19 125/52 96 10/02/19 17:01 81 24 H 114/39 96 10/02/19 16:01 80 29 H 119/46 94 Intake and Output 10/03/19 10/03/19 10/03/19 05:59 13:59 21:59 Intake Total 250 600 Output Total 650 Balance 250 -50 Intake: Oral 250 600 Output: Stool 650 Other: Meal Lunch Percent of Meal Consumed 100% Stool Size Moderate Moderate Stool Color Brown Brown Green Green Stool Consistency Liquid Liquid Weight 119 lb 11.2 oz Patient Weight 10/04/19 05:59 Weight 119 lb 11.2 oz Intake & Output: Intake & Output 10/03/19 10/03/19 10/03/19 05:59 13:59 21:59 Intake Total 250 600 Output Total 650 Balance 250 -50 Weight 119 lb 11.2 oz Intake: Oral 250 600 Output: Stool 650 Other: Meal Lunch Percent of Meal Consumed 100% Stool Size Moderate Moderate Stool Color Brown Brown Green Green Stool Consistency Liquid Liquid - General Appearance General appearance: cachectic EENT: ATNC Neck: no JVD Respiratory: no kyphosis Cardiology: no murmurs Gastrointestinal: normoactive bowel sounds Neurologic: no focal deficit - Lab 10/03/19 05:30 10/03/19 05:30 Most recent lab results Calcium 7.9 mg/dl (8.6-10.4) L 10/03/19 05:30 Phosphorus 2.6 mg/dL (2.7-4.5) L 10/03/19 05:30 Magnesium 1.6 mg/dL (1.6-2.5) 10/03/19 05:30 Assessment and Plan (1) ESRD (end stage renal disease) on dialysis Status: Acute Comment: ESRD. Dialysis today. Anemia. transfused 2 units of prbc. Pneumonia. on antibiotics.
[2019-10-03] MEDS: SENNOSIDES/DOCUSATE SODIUM 1 TAB TABLET PO SCH (20:44)
[2019-10-03 21:19] LABS: Vancomycin,Random 19.8 ug/mL
[2019-10-03] MEDS: MELATONIN 3 MG TABLET PO PRN (22:46)
--- NOTE | 2019-10-03 23:23 | Internal Med Progress Note ---
Medical - PN: Subj Patient information: Note initiated : 10/03/19 at 11:19 pm Service Date, if different from initiated Date: [] Patient: Leonila Martinez a 74 y/o F admitted on 09/30/19 for possible pneumonia. Chief Complaint: [] Interval history: Ms. Martinez is a 74 year old F with known history of ESRD on hemodialysis who follows up with Dr. Phelps. Patient was recently admitted at [facility] with pneumonia and was hospitalized for 48 hours and subsequently discharged with improving white count and post hemodialysis. However over the last 3 to 4 days patient has gotten progressively weaker confused and has missed her hemodialysis due to profound weakness. She is gotten progressively short of breath and with increasing concerns family brought her to the ER. Initial work-up was consistent with basilar infiltrate/white count over 32,000. Bicarbonate 10, Platelets 1028, procalcitonin greater than 200. Nephrology was consulted for hemodialysis. Hospital service consulted after cultures were drawn patient was started on antibiotics. At the time evaluation patient is fatigued lethargic confused oriented only to self but unable to answer to most of the questions or provide a detailed history. Most of the history was obtained from review of medical records and from ER physician. 10/01-patient in septic shock requiring vasopressors after systolics dropped down to 50s. Status post fluid challenge/continued pressors. White count 32,000. On broad antibiotic coverage. Case discussed with nephrology. Patient this morning feels a little better. Remains critically ill. 10/02-white count down from 36,000-17,000 however appears to be a lab error as all cell lines down (Plat 907-> 534 Hgb 9.1->6.5_. Repeat CBC. Transfuse if hemoglobin less than 6.5. CT chest abdomen pelvis to rule out intra-abdominal focus of leukemoid reaction/abscess. Patient clinically improved and off pressors. 10/03-patient doing well except for right arm pain due to local infiltration during attempts at PICC line placement. Status post units blood transfusion. Hemoglobin improved to 7.5. Ongoing hemodialysis. Anticipate discharge in 24 hours. White count downtrending now at 13,000. Stable labs and hemodynamics, no telemetry events. No concerns per staff. - Constitutional Vitals: Vital Signs Temp Pulse Resp BP Pulse Ox 98.1 F 91 H 20 134/46 96 10/03/19 20:01 10/03/19 19:31 10/03/19 16:00 10/03/19 21:31 10/03/19 21:31 Period Temp Pulse Resp BP Sys/Zuniga Pulse Ox Last 24 Hr 97.3 F-99.2 F 63-91 11-28 114-161/41-105 95-100 Intake and Output 10/03/19 10/03/19 10/04/19 13:59 21:59 05:59 Intake Total 1850 Output Total 650 1075 Balance 1200 -1075 Weight 119 lb 11.2 oz 118 lb Patient Weight 10/04/19 05:59 Weight 118 lb Intake & Output: Intake & Output 10/03/19 10/03/19 10/04/19 13:59 21:59 05:59 Intake Total 1850 Output Total 650 1075 Balance 1200 -1075 Weight 119 lb 11.2 oz 118 lb Intake: IV 1250 Sodium Chloride 0.9% 1,000 ml @ 1000 75 mls/hr IV .[id number] DENAE Rx#: [id number] Sodium Chloride 0.9% 250 ml @ 250 20 mls/hr IV .[id number] DENAE Rx#: [id number] Oral 600 Output: Stool 650 1075 Hemodialysis UF 0 Other: Meal Lunch Percent of Meal Consumed 100% Stool Size Moderate Moderate Stool Color Brown Brown Green Green Stool Consistency Liquid Liquid General appearance: no acute distress Exam: Alert Nonlabored breathing Right upper extremity swollen and tender due to IV line infiltration No anxiety Medical - PN: Obj Da - Labs CBC & Chem 7: 10/03/19 05:30 10/03/19 05:30 Labs: Abnormal Lab Results 10/03/19 10/03/19 10/02/19 05:30 05:30 11:38 WBC 13.3 H 16.4 H RBC 2.50 L 1.91 L Hgb 8.3 L 6.7 L* Hct 24.0 L 19.9 L* MCV 104.2 H MCH 35.1 H RDW 18.5 H 18.1 H Plt Count Gran % 80.4 H Lymph % (Auto) 12.5 L Gran # 13.22 H [place] # (Auto) 0.92 H Seg Neutrophils % 82 H Lymphocytes % 8 L Platelet Estimate RBC Morphology Abnorm A Anisocytosis 1+ A Macrocytosis ABG Methemoglobin VBG pH VBG pCO2 VBG pO2 VBG O2 Saturation Carboxyhemoglobin Total Hemoglobin Chloride Carbon Dioxide 21 L Anion Gap BUN 24 H Creatinine 4.0 H Uric Acid Calcium 7.9 L Phosphorus 2.6 L TIBC Unsat Iron Binding Transferrin % Sat Ferritin GGT 279 H AST ALT 42 H Alkaline Phosphatase 222 H Lactate Dehydrogenase Total Protein 5.1 L Albumin 2.3 L Albumin/Globulin Ratio 0.8 L Triglycerides 10/02/19 10/02/19 10/02/19 10:32 04:47 04:47 WBC 17.4 H RBC 1.84 L Hgb 6.5 L* Hct 19.1 L* MCV 103.8 H MCH 35.3 H RDW 17.4 H Plt Count 534 H Gran % Lymph % (Auto) Gran # [place] # (Auto) Seg Neutrophils % 85 H Lymphocytes % 8 L Platelet Estimate RBC Morphology Abnorm A Anisocytosis 1+ A Macrocytosis 1+ A ABG Methemoglobin VBG pH VBG pCO2 VBG pO2 VBG O2 Saturation Carboxyhemoglobin Total Hemoglobin Chloride Carbon Dioxide Anion Gap BUN Creatinine 2.3 H Uric Acid 2.0 L Calcium 8.4 L Phosphorus TIBC 128 L Unsat Iron Binding < 20 L Transferrin % Sat 84 H Ferritin 4389.0 H GGT 377 H AST 63 H ALT 59 H Alkaline Phosphatase 302 H Lactate Dehydrogenase Total Protein 4.9 L Albumin 2.3 L Albumin/Globulin Ratio 0.9 L Triglycerides 10/01/19 10/01/19 10/01/19 13:53 09:18 09:18 WBC 36.4 H* RBC 2.62 L Hgb 9.1 L Hct 25.4 L MCV MCH 34.7 H RDW 17.5 H Plt Count 907 H* Gran % Lymph % (Auto) Gran # [place] # (Auto) Seg Neutrophils % 86 H Lymphocytes % 8 L Platelet Estimate Mk incr A RBC Morphology Abnorm A Anisocytosis 1+ A Macrocytosis ABG Methemoglobin 0.3 L VBG pH 7.46 H VBG pCO2 35.5 L VBG pO2 152 H VBG O2 Saturation 94.7 H Carboxyhemoglobin 4.0 H Total Hemoglobin 8.0 L Chloride 90 L Carbon Dioxide Anion Gap 23.0 H BUN Creatinine 3.7 H Uric Acid Calcium Phosphorus TIBC Unsat Iron Binding Transferrin % Sat Ferritin GGT 546 H AST 127 H ALT 96 H Alkaline Phosphatase 435 H Lactate Dehydrogenase 289 H Total Protein Albumin 2.9 L Albumin/Globulin Ratio 0.8 L Triglycerides 264 H Meds: Medications Acetaminophen (Tylenol) 650 mg PO Q4-6HP PRN; Protocol PRN Reason: Per Pain Protocol/Fever > 101 Last Admin: 10/03/19 08:15 Dose: 650 mg Documented by: Bisacodyl (Dulcolax) 10 mg CA Q2-3DAYS PRN PRN Reason: Constipation Cefepime HCl (Maxipime) 1 gm IV Q24H [facility] Last Admin: 10/03/19 08:07 Dose: 1 gm Documented by: Docusate Sodium (Colace) 100 mg PO BID [facility] Last Admin: 10/03/19 20:44 Dose: Not Given Documented by: Heparin Sodium (Porcine) (Heparin) 5,000 unit SQ Q12 [facility] Last Admin: 10/03/19 20:44 Dose: 5,000 unit Documented by: Acetaminophen (Ofirmev) 650 mg in 65 mls @ 130 mls/hr IV Q6HP PRN; Protocol PRN Reason: Per Pain Protocol/Fever > 101 Sodium Chloride (Sodium Chloride 0.9%) 250 mls @ 20 mls/hr IV .[id number] [facility] Last Admin: 10/03/19 17:08 Dose: 20 mls/hr Documented by: Sodium Chloride (Sodium Chloride 0.9%) 1,000 mls @ 75 mls/hr IV .[id number] [facility] Last Admin: 10/03/19 17:07 Dose: 75 mls/hr Documented by: Norepinephrine Bitartrate 16 (mg/ Sodium Chloride) 250 mls @ 9.375 mls/hr IV Q24HP PRN; Protocol PRN Reason: Hypotension Iron Carb/Multivit/Home Garden/Folic Acid (Multivitamin W/Minerals) 1 tab PO DAILY [facility] Last Admin: 10/03/19 08:07 Dose: 1 tab Documented by: Melatonin (Melatonin 3mg Tablet) 3 mg PO [facility] PRN PRN Reason: Insomnia Last Admin: 10/03/19 22:46 Dose: 3 mg Documented by: Nicotine (Nicoderm) 14 mg TOPICAL DAILY@1000 [facility] Last Admin: 10/03/19 09:10 Dose: 14 mg Documented by: Ondansetron HCl (Zofran) 4 mg IV Q4-6HP PRN; Protocol PRN Reason: Nausea And Vomiting Last Admin: 10/01/19 07:37 Dose: 4 mg Documented by: Pantoprazole Sodium (Protonix) 40 mg IV BIDAC [facility] Last Admin: 10/03/19 19:18 Dose: 40 mg Documented by: Polyethylene Glycol (Miralax) 17 gm PO DAILYP PRN PRN Reason: Constipation Senna/Docusate Sodium (Senna Plus Tablet) 1 tab PO HS [facility] Last Admin: 10/03/19 20:44 Dose: Not Given Documented by: Sodium Chloride (Saline Flush) 10 ml IV Q8 [facility] Last Admin: 10/03/19 20:44 Dose: 10 ml Documented by: Tramadol HCl (Ultram) 50 mg PO BIDP PRN PRN Reason: Pain Last Admin: 10/03/19 22:46 Dose: 50 mg Documented by: Vancomycin HCl (Vancomycin Per Pharmacy) 1 order IV UD [facility]; Protocol - ABG Interpretation ABG results: 09/30/19 10/01/19 20:48 13:53 ABG Methemoglobin 0.1 L 0.3 L VBG pH 7.45 H 7.46 H VBG pCO2 18.0 L* 35.5 L VBG pO2 56 H 152 H VBG HCO3 12.2 L 24.8 VBG Total CO2 12.8 L 25.9 VBG O2 Saturation 86.3 H 94.7 H VBG Base Excess -9.8 L 1.0 Medical - PN: A/P - Time Spent With Patient Total time spent is greater than 50% in coordination of care (as documented) at patient's floor/unit and/or counseling patient: 15 - 24 minutes (1) Severe sepsis with acute organ dysfunction Status: Acute Assessment and plan: * Septic shock with acute organ dysfunction-clinically resolved now off vasopressors. Continue vancomycin/cefepime. * Leukemoid reaction with white count 36,000. Down to 13K, repeat CBC. No evidence of abscess or intra-abdominal pathology on CT chest abdomen pelvis. Likely source pneumonia. Clinically improved * Acute mental status change secondary to severe sepsis-clinically back to baseline. Anticipate discharge to SNF in 24 hours * Bilateral pneumonia -clinically improving on antibiotic coverage. De-escalate to oral antibiotics in 24 hours * Anemia of chronic disease secondary to ESRD. Hemoglobin improved to 8.3 posttransfusion. * Thrombocytosis likely reactive resolved now at 368 down from 1028 * ESRD on HD management per nephrology * History of Crohn's disease stable * Full code * Prophylaxis heparin Plan * Hemodialysis per nephrology * Continue PT OT/nutrition support * Continue broad antibiotic coverage * PT OT nutrition support * SNF transfer a.m. Current Visit: Yes Medical - PN: Qual - VTE Deep Vein Thrombosis/Pulmonary Embolism Present on Admission: No
[2019-10-04] MEDS: 0.9 % SODIUM CHLORIDE 250 ML IV SCH (04:24)
[2019-10-04] MEDS: 0.9 % SODIUM CHLORIDE 1,000 ML IV SCH (04:24)
[2019-10-04] MEDS: 0.9 % SODIUM CHLORIDE 10 ML SYRINGE IV SCH (05:41)
[2019-10-04 06:25] LABS: Hematocrit 25.5 % (34.1-44.9); Hemoglobin 8.9 g/dL (11.2-15.7); Mean Cell Volume 95.9 fL (80.0-100.0); Mean Corpuscular HGB Conc 34.9 g/dL (31.0-36.0); Mean Platelet Volume 9.2 fL (7.4-10.4); Platelet Count 381 K/mcL (140-440); RBC 2.66 M/mcL (3.59-5.38); Red Cell Distribution Width 18.9 % (11.5-14.5); WBC 14.1 K/mcL (4.50-11.00)
[2019-10-04 06:55] LABS: ALT/SGPT 38 U/l (0-40); AST/SGOT 39 U/l (0-37); Albumin 2.5 gm/dL (3.2-5.2); Albumin/Globulin Ratio 0.8 (1.0-2.3); Alkaline Phosphatase 231 U/L (39-117); Bilirubin,Direct < 0.2 mg/dL (0.0-0.3); Bilirubin,Total 0.5 mg/dL (0.0-1.0); Calcium 8.2 mg/dl (8.6-10.4); Carbon Dioxide 24 mmol/L (22-30); Chloride 100 mmol/L (96-108); Glucose 98 mg/dL (70-105); Lactate Dehydrogenase 230 U/L (94-250); Triglycerides 134 mg/dl (<150)
[2019-10-04 06:57] LABS: Blood Urea Nitrogen 9 mg/dl (8-23); Glomerular Filtration Rate 22; Phosphorous 1.3 mg/dL (2.7-4.5)
[2019-10-04 07:08] LABS: Anisocytosis 1+ (NONE SEEN); Eosinophils % (Manual) 2 % (0-7); Lymphocytes % 10 % (15-49); Monocytes % (Manual) 3 % (1-12); Platelet Estimate NORMAL (NORMAL); RBC Morphology ABNORM (NORMAL); Segmented Neutrophils % 85 % (38-78)
[2019-10-04] MEDS: PANTOPRAZOLE 40 MG VIAL IV SCH (08:04)
--- NOTE | 2019-10-04 09:24 | Discharge Summary ---
Medical - DS: Prov Patient information: Note initiated : 10/04/19 at 9:21 am Service Date, if different from initiated Date: [] Patient: Leonila Martinez 74 y/o F admitted on 09/30/19 for possible pneumonia. Chief Complaint: [] Date of admission: 09/30/19 21:52 Discharge date: 10/04/19 Consults: 09/30/19 Consult to Physician [CONS] Stat Comment: Consulting Provider: Anthony Russell Reason For Exam: Physician to Consult 10/02/19 16:40 Consult to Physician [CONS] Routine Comment: Consulting Provider: Billie Grande Reason For Exam: Physician to Consult Medical - DS: Meds - Discharge Medications Prescriptions: Cefepime [Maxipime] 1 gm IV Q24H #3 vial Prescription Printed Active and Home Medications: Home Medications Calcium Acetate [Phoslo] 3 tab PO TID 09/25/19 [History Confirmed 10/01/19 Last Taken 09/30/19 21:00] Loperamide HCl [Loperamide] 2 mg PO Q8 PRN 09/25/19 [History Confirmed 10/01/19 Last Taken Unknown] Vitamin D3 5,000 unit PO DAILY 09/25/19 [History Confirmed 10/01/19 Last Taken 09/30/19 08:00] traMADol HCL [Ultram] 50 mg PO BID 09/25/19 [History Confirmed 10/01/19 Last Taken 09/30/19 21:00] Amoxicillin/Potassium Clav [Augmentin] 500 mg PO DAILY #5 tab 09/26/19 [Rx Confirmed 10/01/19 Last Taken Unknown] Doxycycline Monohydrate 100 mg PO BID #10 tab 09/26/19 [Rx Confirmed 10/01/19 Last Taken Unknown] Cefepime [Maxipime] 1 gm IV Q24H #3 vial 10/04/19 [Rx Last Taken Unknown] Medical - DS: Hosp Hospital Course: Discharge diagnosis * Septic shock with acute organ dysfunction-clinically resolved and off vasopressors. Clinically improved with white count down to 14,000 from 36.4. Discharging advised to continue additional 3 days of IV cefepime * Bilateral pneumonia -clinically improving on antibiotic coverage. Continue IV cefepime for 3 days * Leukemoid reaction with white count 36,000. Resolved with treatment * Acute mental status change secondary to severe sepsis-clinically back to baseline. * Anemia of chronic disease secondary to ESRD. Hemoglobin improved to 8.9 posttransfusion. * Thrombocytosis likely reactive resolved now at 380 down from 1028 * ESRD on HD management per nephrology * History of Crohn's disease stable Brief hospital course Ms. Martinez is a 74 year old F with known history of ESRD on hemodialysis who follows up with Dr. Phelps. Patient was recently admitted at [facility] with pneumonia and was hospitalized for 48 hours and subsequently discharged with improving white count and post hemodialysis. However over the last 3 to 4 days patient has gotten progressively weaker confused and has missed her hemodialysis due to profound weakness. She is gotten progressively short of breath and with increasing concerns family brought her to the ER. Initial work-up was consistent with basilar infiltrate/white count over 32,000. Bicarbonate 10, Platelets 1028, procalcitonin greater than 200. Nephrology was consulted for hemodialysis. Hospital service consulted after cultures were drawn patient was started on antibiotics. At the time evaluation patient is fatigued lethargic confused oriented only to self but unable to answer to most of the questions or provide a detailed history. Most of the history was obtained from review of medical records and from ER physician. 10/01-patient in septic shock requiring vasopressors after systolics dropped down to 50s. Status post fluid challenge/continued pressors. White count 32,000. On broad antibiotic coverage. Case discussed with nephrology. Patient this morning feels a little better. Remains critically ill. 10/02-white count down from 36,000-17,000 however appears to be a lab error as all cell lines down (Plat 907-> 534 Hgb 9.1->6.5_. Repeat CBC. Transfuse if hemoglobin less than 6.5. CT chest abdomen pelvis to rule out intra-abdominal focus of leukemoid reaction/abscess. Patient clinically improved and off pressors. 10/03-patient doing well except for right arm pain due to local infiltration during attempts at PICC line placement. Status post units blood transfusion. Hemoglobin improved to 7.5. Ongoing hemodialysis. Anticipate discharge in 24 hours. White count downtrending now at 13,000. Stable labs and hemodynamics, no telemetry events. No concerns per staff. 10/04-patient doing well. Discharging to SNF with advice to continue antibiotics additional 3 days and continue hemodialysis as outpatient. Continue PT OT nutrition support for posthospitalization rehab. Discharge diagnosis: . - Time Spent with Patient Total time spent providing and/or coordinating discharge services: Greater than 30 minutes Medical - DS: Exam - Constitutional Vitals: Vital Signs Temp Pulse Resp BP Pulse Ox 10/04/19 07:00 98.4 F 16 129/44 100 10/04/19 05:51 16 96 10/04/19 05:31 16 163/91 98 10/04/19 05:01 16 144/94 97 10/04/19 04:31 18 127/51 98 10/04/19 04:01 98.1 F 16 150/127 96 10/04/19 03:31 18 104/40 97 10/04/19 03:01 16 124/47 98 10/04/19 02:49 16 121/49 97 10/04/19 02:31 16 105/37 99 10/04/19 02:01 85 18 113/38 100 10/04/19 01:31 85 17 126/50 98 10/04/19 01:01 86 16 123/43 96 10/04/19 00:32 87 16 97 10/04/19 00:31 86 134/45 98 10/04/19 00:01 98.2 F 84 124/52 100 10/03/19 23:01 117/40 97 10/03/19 22:31 115/36 96 10/03/19 22:01 116/47 97 10/03/19 21:31 134/46 96 10/03/19 21:01 114/43 10/03/19 20:31 150/52 95 10/03/19 20:01 98.1 F 145/48 10/03/19 19:31 91 H 161/59 96 10/03/19 19:01 83 128/43 95 10/03/19 18:46 97.7 F 63 124/41 10/03/19 18:31 79 124/41 96 10/03/19 18:22 69 127/46 10/03/19 18:01 79 127/46 98 10/03/19 17:51 63 114/58 10/03/19 17:31 77 114/58 96 10/03/19 17:21 70 124/49 10/03/19 17:01 124/49 10/03/19 16:49 73 145/47 10/03/19 16:31 145/47 10/03/19 16:19 72 138/59 10/03/19 16:01 73 138/59 98 10/03/19 16:00 99.2 F H 20 123/64 97 10/03/19 15:51 75 138/54 10/03/19 15:31 74 138/54 97 10/03/19 15:20 98 F 76 123/64 10/03/19 15:11 79 123/64 98 10/03/19 14:52 76 98 10/03/19 11:57 99 F 20 117/57 97 10/03/19 10:01 84 25 H 117/57 97 Intake and Output 10/03/19 10/04/19 10/04/19 21:59 05:59 13:59 Intake Total 360 Output Total 1075 600 Balance -1075 -240 Intake: Oral 360 Output: Stool 1075 600 Hemodialysis UF 0 Other: Stool Size Moderate Stool Color Brown Green Stool Consistency Liquid Weight 118 lb Medical - DS: Data Labs on day of discharge: Labs from last 24 hours 10/04/19 10/04/19 10/03/19 05:37 05:37 20:10 WBC 14.1 H RBC 2.66 L Hgb 8.9 L Hct 25.5 L MCV 95.9 MCH 33.5 MCHC 34.9 RDW 18.9 H Plt Count 381 MPV 9.2 Total Counted 100 Seg Neutrophils % 85 H Band Neutrophils % Not Reportable Lymphocytes % 10 L Monocytes % (Manual) 3 Eosinophils % (Manual) 2 Platelet Estimate Normal RBC Morphology Abnorm A Anisocytosis 1+ A Sodium 137 Potassium 3.7 Chloride 100 Carbon Dioxide 24 Anion Gap 13.0 BUN 9 Creatinine 2.2 H GFR Calculation 22 Glucose 98 Uric Acid 2.0 L Calcium 8.2 L Phosphorus 1.3 L Magnesium 1.5 L Total Bilirubin 0.5 Direct Bilirubin < 0.2 GGT 282 H AST 39 H ALT 38 Alkaline Phosphatase 231 H Lactate Dehydrogenase 230 Total Protein 5.5 L Albumin 2.5 L Globulin 3.0 Albumin/Globulin Ratio 0.8 L Triglycerides 134 Random Vancomycin 19.8 Vancomycin Dose Not Reportable Vanco Last Dose Time Not Reportable Preliminary micro results at discharge 10/01/19 13:53 Blood Culture - Preliminary Blood 10/01/19 14:03 Blood Culture - Preliminary Blood Medical - DS: A/P - Patient/Caregiver Discharge Instructions Activity: as per physical therapy, increase activity as tolerated Diet: Renal Additional Instructions: Resume normal scheduled Dialysis times; Sunday, Sunday and Sunday at the [facility] with the check-in time of 1030. Follow-up PCP in 5 days continue hemodialysis as prior I recommend SNF physician to check CBC BMP as a posthospital follow-up in 1 week. Antibiotics for additional 3 days IV cefepime Continue aggressive bowel regimen to prevent constipation Continue fall precautions Continue aggressive PT OT evaluation and treatment at [facility]. ST eval and treatment if indicated All meals on chair sitting upright at 90 degrees to prevent aspiration Return to ER if worsening fever chills shortness of breath, diarrhea, bleeding Review risk and side effect profile of medications including antibiotics. Side effect may include mild to severe reaction including rash, diarrhea, cdiff and even which can be prevented by close follow-up with PCP and monitoring for side effects Continue renal diet and activity as advised Discussed importance of medication adherence Please review medication list with patient prior to discharge Please schedule follow-up with PCP/Providers prior to discharge and provide printouts Prescriptions: Cefepime [Maxipime] 1 gm IV Q24H #3 vial Prescription Printed - Problem Maintenance (1) Severe sepsis with acute organ dysfunction Status: Acute - Follow up Plan Disposition: Xfer [facility] Prognosis: Fair Rehab Potential: Fair I certify that the patient requires SNF services: Yes Overall status at discharge: patient is progressing back to baseline Medical - DS: Qual - VTE Deep Vein Thrombosis/Pulmonary Embolism Present on Admission: No
[2019-10-04] MEDS: CEFEPIME 1 GM VIAL IV SCH (09:30)
[2019-10-04] MEDS: HEPARIN 5,000 UNIT/ML VIAL SQ SCH (09:30)
[2019-10-04] MEDS: NICOTINE 14 MG PATCH TOPICAL SCH (09:31)
[2019-10-04] MEDS: MULTIVIT,THER IRON,CA,FA & MIN 1 TABLET PO SCH (09:31)
[2019-10-04] MEDS: DOCUSATE SODIUM 100 MG CAPSULE PO SCH (09:31)
== END 2019-10-04 10:12 | DRG 871 ==
LOC: ED 17:23 → ICU 21:52
PROVIDERS: ADMIT Internal Medicine; ATTEND Internal Medicine